=== PATIENT | male | born 1965 | race Caucasian/White ===

== ENCOUNTER 2018-04-09 11:22 | Inpatient (IN) ==
[2018-04-09] MEDS ORDERED: ASPIRIN PR ONE (12:12)
[2018-04-09] MEDS ORDERED: ASPIRIN PO ONE (12:12)
[2018-04-09 12:25] LABS: BASO# 0.04 X1000 (0.0-0.2); BASO% 0.6 % (0.0-0.8); EOS# 0.07 X1000 (0.0-0.7); EOS% 1.1 % (0.0-10.0); HEMATOCRIT 36.1 % (42.0-52.0); HEMOGLOBIN 11.5 g/dL (14.0-18.0); IMM GRAN# 0.03 X1000 (0.0-0.04); IMM GRAN% 0.5 % (0.0-0.5); LYMPH# 0.84 X1000 (1.2-3.4); LYMPH% 13.4 % (20.5-51.1); MCH 27.1 PG (27-31); MCHC 31.9 g/dL (33-37); MCV 85.1 FL (81-99); MONO# 0.69 X1000 (0.11-0.59); NEUT# 4.58 X1000 (1.4-6.5); NEUT% 73.4 % (42.2-75.2); PLT 220 X1000 (130-400); RBC 4.24 XMIL (4.7-6.1); RDW 20.4 % (11.5-14.5); WBC 6.25 X1000 (4.8-10.8)
[2018-04-09 12:30] LABS: INR 1.18; PROTIME 15.6 Seconds (11.0-16.0); PTT 30.1 Seconds (22.3-41.8)
[2018-04-09 12:39] LABS: AGAP 13; ALBUMIN 3.9 g/dL (3.5-5.0); ALKALINE PHOSPHATASE 97 U/L (32-122); BUN 13 mg/dL (8-22); CHLORIDE 92 mmol/L (98-107); CK PROFILE 76 U/L (24-204); COSMO 267; CREATININE 1.1 mg/dL (0.7-1.2); ESTIMATED GFR > 60; GLUCOSE 81 mg/dL (70-104); GOT 29 U/L (10-34); GPT 19 U/L (10-44); POTASSIUM 3.7 mmol/L (3.5-5.1); SODIUM 134 mmol/L (136-145); TCO2 29 mmol/L (25-35); TOTAL PROTEIN 7.3 g/dL (6.3-8.3)
[2018-04-09] MEDS ORDERED: DUONEB (A & A) INH ONE (12:42)
[2018-04-09] MEDS ORDERED: LASIX IV ONE (12:42)
[2018-04-09] MEDS ORDERED: SOLU-MEDROL IV ONE (12:42)
--- NOTE | 2018-04-09 12:42 | Diag Imaging Result Doc PS360 ---
EXAM: CHEST-2 VIEWS HISTORY: SOB TECHNIQUE: Chest two views COMPARISON: 02/07/2018 FINDINGS: The lungs are well expanded. There are increased interstitial markings throughout both lungs. The heart remains mildly prominent. The tiny pleural effusions. No consolidation. There has been surgery to the lower neck. IMPRESSION: Infiltrates versus fibrosis Electronically signed by Rad Borja 04/09/2018 12:40 PM
--- NOTE | 2018-04-09 14:44 | PROVIDER DOCUMENTATION ---
This chart was entered by Niurka Luevano Scribe, acting as scribe for Sarah Wheeler MD. HPI-Respiratory General - General Chief Complaint: Shortness of Breath Stated Complaint: SOB Time Seen by Provider: 04/09/18 12:02 Source: patient Allergies/Adverse Reactions: Patient Allergies Allergy/AdvReac Type Severity Reaction Status Date / Time codeine Allergy ANAPHYLAXIS Verified 01/31/18 02:54 hydrocodone AdvReac NAUSEA/VOMI Verified 01/31/18 02:54 TING Home Medications: Home Medication List Medication Instructions Recorded Confirmed Last Taken Type Lisinopril 2.5 mg PO DAILY 01/01/18 02/05/18 1 Day Ago History ~01/13/18 Nitroglycerin Sl [Nitroglycerin] 0.4 mg PO PRN PRN 01/01/18 02/05/18 2 Days Ago History ~01/12/18 Spironolactone 12.5 mg PO DAILY 01/01/18 02/05/18 1 Day Ago History ~01/13/18 Aspirin 81 mg PO DAILY 01/14/18 02/05/18 1 Day Ago History ~01/13/18 Amiodarone [Cordarone] 200 mg PO QAM #30 tablet 01/29/18 02/05/18 Unknown Rx Azithromycin [Zithromax Z-Davi] 250 mg PO DIRECTED #1 pkg 01/29/18 02/05/18 Unknown Rx Carvedilol 3.125 mg PO BID #60 tablet 01/29/18 02/05/18 Unknown Rx Clopidogrel [Plavix] 75 mg PO DAILY #30 tablet 01/29/18 02/05/18 Unknown Rx Furosemide [Lasix] 80 mg PO DAILY #60 tablet 01/29/18 02/05/18 Unknown Rx - History of Present Illness-Resp Nature of Presenting Problem: 53 yowm presents to the ed with c/o sob for 2 days. pt sts it is worse when lying flat or with exertion. pt has hx of copd and chf Quality of Pain: reports: fullness Severity in ED: reports: moderate Onset/Duration: reports: 2 days ago Timing: reports: still present, constant Context: reports: recent URI Cough Quality/Degree: reports: dry cough Episode Frequency: frequent episodes Current Respiratory Medication Therapy: Initiated see nurses note Modifying Factors: improves with: oxygen, rest, sitting upright. worse with: exertion, lying down Associated Symptoms: reports: cough, hurts to breathe, shortness of breath. denies: chest pain/soreness, dizziness, nasal congestion Similar Symptoms Previously?: Yes Recently seen or treated by another doctor?: No Review of Systems - Adult - REVIEW OF SYSTEMS - ADULT Constitutional: reports: no symptoms reported Eyes: denies: blurred vision, double vision Ears, Nose, Mouth & Throat: reports: no symptoms reported Cardiovascular: denies: chest pain, palpitations, syncope Respiratory: reports: see HPI, cough, dyspnea on exertion, shortness of breath. denies: wheezing Gastrointestinal: denies: abdominal pain, diarrhea, nausea, vomiting Genitourinary: reports: no symptoms reported Musculoskeletal: reports: no symptoms reported Integumentary: reports: no symptoms reported Neurological: denies: dizziness/vertigo, headache/migraines Psychiatric: reports: no symptoms reported Endocrine: reports: no symptoms reported Hematologic/Lymphatic: reports: no symptoms reported Allergic/Immunologic: reports: no symptoms reported All Other Systems: Reviewed and Negative Past History - Adult - PAST MEDICAL HISTORY-ADULT Review of Records: reports: Old Records Reviewed, Nursing Assessment Review, Medications Reviewed, Social history reviewed & non-contributory. Major Childhood Illnesses: reports: denies history Cardiovascular: reports: A-Fib, CHF Respiratory: reports: asthma, COPD, pneumonia Gastrointestinal: reports: denies history Genitourinary: reports: denies history Musculoskeletal: reports: denies history Neurological: reports: denies history Psychiatric: reports: anxiety Endocrine/Immune: reports: denies history Other Conditions: reports: denies history - PRIOR SURGERIES/PROCEDURES Surgical/Procedure History: reports: hernia repair, back/neck - IMMUNIZATION STATUS Childhood Immunizations: See Nurse Assessment Flu Vaccine: See Nurse Assessment - FAMILY HISTORY Family History: reviewed, not pertinent - SOCIAL HISTORY Smoking: quit greater than 1 year Substance Use: denies Living Situation: family Physical Exam-General - PHYSICAL EXAM-ADULT Initial Vital Signs Reviewed: Yes - CONSTITUTIONAL General Appearance: alert, mild distress, anxious - EYES Eyes: PERRL/EOMI, pink conjunctivae - HEAD, EARS, NOSE, MOUTH & THROAT HENMT: moist mucous membranes, dental decay - NECK Neck: non-tender, full range of motion, supple, normal inspection - RESPIRATORY Respiratory: respiratory distress, crackles, increased rate (28). negative: rales, rhonchi, wheezing - CARDIOVASCULAR Cardiovascular: normal peripheral pulses, tachycardia (104) - GASTROINTESTINAL (ABDOMEN) Abdominal Exam: normal bowel sounds, non tender, soft - LYMPHATIC Lymphatic: no adenopathy - MUSCULOSKELETAL Back Exam: normal inspection, no CVA tenderness, no vertebral tenderness Extremity: normal range of motion, non-tender, normal inspection, no pedal edema , no calf tenderness, normal capillary refill - SKIN Integumentary: normal color, normal turgor, warm/dry - NEUROLOGIC Neurologic: grossly normal - PSYCHIATRIC Psych/Mental Status: normal mood/affect, normal thought content, normal thought process, oriented x 3, anxious Progress - PLAN OF CARE/RESULTS Progress/Plan/Lab Results: Vital Signs - 8 hr 04/09/18 11:34 04/09/18 12:52 04/09/18 13:05 Temperature 97.6 F Pulse Rate 104 H 102 H 103 H Respiratory Rate 28 H 16 26 H Blood Pressure 94/56 112/82 O2 Sat by Pulse Oximetry 100 98 100 Laboratory Results - last 24 hr 04/09/18 04/09/18 04/09/18 11:47 11:47 11:47 WBC 6.25 RBC 4.24 L Hgb 11.5 L Hct 36.1 L MCV 85.1 MCH 27.1 MCHC 31.9 L RDW Std Deviation 20.4 H Plt Count 220 MPV 10.0 Immature Gran % (Auto) 0.5 Neut % (Auto) 73.4 Lymph % (Auto) 13.4 L [place] % (Auto) 11.0 H Eos % (Auto) 1.1 Baso % (Auto) 0.6 Immature Gran # (Auto) 0.03 Neut # (Auto) 4.58 Lymph # (Auto) 0.84 L [place] # (Auto) 0.69 H Eos # (Auto) 0.07 Baso # (Auto) 0.04 PT INR PTT (Actin FS) Sodium 134 L Potassium 3.7 Chloride 92 L Carbon Dioxide 29 Anion Gap 13 BUN 13 Creatinine 1.1 Estimated GFR/1.73 m2 > 60 BUN/Creatinine Ratio 12 Glucose 81 Calculated Osmolality 267 Calcium 9.0 Total Bilirubin 0.90 AST 29 ALT 19 Alkaline Phosphatase 97 Creatine Kinase 76 Troponin T Cwn-J-Wmcquccvbst Pept 6705 H Total Protein 7.3 Albumin 3.9 Globulin 3.0 Albumin/Globulin Ratio 1.0 Plasma Lactate 04/09/18 04/09/18 04/09/18 11:47 11:47 11:47 WBC RBC Hgb Hct MCV MCH MCHC RDW Std Deviation Plt Count MPV Immature Gran % (Auto) Neut % (Auto) Lymph % (Auto) [place] % (Auto) Eos % (Auto) Baso % (Auto) Immature Gran # (Auto) Neut # (Auto) Lymph # (Auto) [place] # (Auto) Eos # (Auto) Baso # (Auto) PT 15.6 INR 1.18 PTT (Actin FS) 30.1 Sodium Potassium Chloride Carbon Dioxide Anion Gap BUN Creatinine Estimated GFR/1.73 m2 BUN/Creatinine Ratio Glucose Calculated Osmolality Calcium Total Bilirubin AST ALT Alkaline Phosphatase Creatine Kinase Troponin T < 0.010 Raz-H-Unnhsdytdgh Pept Total Protein Albumin Globulin Albumin/Globulin Ratio Plasma Lactate 2.2 Orders Category Date Time Status Cardiac Monitoring DIRECTED Care 04/09/18 12:13 Active Oxygen Therapy- ED Nursing DIRECTED Care 04/09/18 12:13 Active Saline Loc NOW Care 04/09/18 12:13 Active CHEST-2 VIEWS [RAD] Stat Exams 04/09/18 12:13 Completed BLOOD CULTURE [BLDCUL] Stat Lab 04/09/18 13:14 Ordered CBC WITH ELECTRONIC DIFF [HEME] Stat Lab 04/09/18 11:47 Completed CK PROFILE [SP CHEM] Stat Lab 04/09/18 11:47 Completed COMPREHENSIVE METABOLIC PANEL [CHEM] Stat Lab 04/09/18 11:47 Completed LACTATE, PLASMA [CHEM] Stat Lab 04/09/18 11:47 Completed PRO B-NATRIURETIC PEPTIDE Stat Lab 04/09/18 11:47 Completed PROTIME WITH INR [COAG] Stat Lab 04/09/18 11:47 Completed PTT [COAG] Stat Lab 04/09/18 11:47 Completed TROPONIN T Stat Lab 04/09/18 11:47 Completed Albuterol 2.5MG/Ipratrop 0.5MG [Duoneb (A & A)] Med 04/09/18 12:42 Discontinued 6 ml INH NOW ONE Aspirin Med 04/09/18 12:12 Discontinued 300 mg [place] NOW ONE Aspirin Med 04/09/18 12:12 Discontinued 325 mg PO NOW ONE Furosemide [Lasix] Med 04/09/18 12:42 Discontinued 40 mg IV NOW ONE Methylprednisolone Sod Succ [Solu-Medrol] Med 04/09/18 12:42 Discontinued 125 mg IV NOW ONE Aerosol Treatments Routine Oth 04/09/18 12:43 Completed Aerosol Treatments Stat Oth 04/09/18 12:43 Completed CP/SOB/Palp >45 yrs of Age Stat Oth 04/09/18 12:12 Ordered EKG [EKG] Stat Ther 04/09/18 12:13 Ordered Result Diagrams: 04/09/18 11:47 04/09/18 11:47 - REASSESSMENT Reassessment #1 Time Reassessed: 14:24 Status: unchanged Reassessment Comment: pt is sitting in bed - EKG 1 Time of EKG reading by physician:: 12:07 EKG Read and Signed by:: Sarah Wheeler EKG Interpretation (*Must complete 3 of following elements*): Abnormal Rate: 103 Rhythm: aflutter w/ variable AV block w/ premature ventricular or acc [place]: normal QRS: RBB (incomplete) [place] Interval: normal Comments: nonspecific ST and T wave abnoermality - XRAY 1 XRAY: Bilateral XRAY Study: Chest Impression: See EMR Report (EXAM: CHEST-2 VIEWS HISTORY: SOB TECHNIQUE: Chest two views COMPARISON: 02/07/2018 FINDINGS: The lungs are well expanded. There are increased interstitial markings throughout both lungs. The heart remains mildly prominent. The tiny pleural effusions. No consolidation. There has been surgery to the lower neck. IMPRESSION: Infiltrates versus fibrosis Electronically signed by Rad Borja 04/09/2018 12:40 PM 1240 Interpreting Physician: Rad Borja MD Dictated Date/Time: 04/09/18 1238 cc: Sarah Wheeler MD; None,PCP) - CONSULTS/PCP/HOSPITALIST Notification #1 *Consult/PCP/Hospitalist*: hospitalist dr miles Time Discussed: 14:39 Reason/Comments: sob Consult Disposition: Admit Departure - Departure Date of Disposition Decision: 04/09/18 Time of Disposition Decision: 14:43 DIAGNOSIS: CHF (congestive heart failure) Qualifiers: Heart failure type: unspecified Heart failure chronicity: acute on chronic Qualified Code(s): I50.9 - Heart failure, unspecified Disposition: ADMITTED INPATIENT 09 Certified Medical Emergency: Emergent Condition: Stable Referrals and Follow-Ups: None,PCP [Primary Care Provider] - - Critical Care Note This patient required my direct & personal management of CC.: Yes Total Time (mins): 38 Critical Care Statement: This patient required my direct personal management to treat or rule out processes, the absence of which, could potentiallly result in sudden, clinically significant life or limb threatening deterioration. Attestation - Physician/ PREET Attestation Patient care was provided by Advanced Practice Provider:: No The physician spent face to face time with patient:: Yes Advanced Practice Provider documentation review:: Supervising physician onsite and consulted in the evaluation and care of this patient. The physician did have a face to face encounter with the patient. This chart was documented by the indicated scribe, (Niurka Luevano Scribe) and accurately reflects the services I performed and decisions made by me, Sarah Wheeler MD, as attested by the provider's signature.
--- NOTE | 2018-04-09 15:03 | EKG Report ---
Test Performed on : 04/09/2018 12:07:59 PM Test Reason : SOB Blood Pressure : / mmHG Vent. Rate : 103 BPM Atrial Rate : 206 BPM P-R Int : 000 ms QRS Dur : 092 ms QT Int : 202 ms P-R-T Axes : -81 063 110 degrees QTc Int : 264 ms Atrial flutter. with variable AV block. with premature ventricular or aberrantly conducted complexes. Incomplete right bundle branch block Nonspecific ST and T wave abnormality Abnormal ECG When compared with ECG of 07-FEB-2018 21:01, Criteria for Septal infarct are no longer present ST now depressed in Inferior leads ST now depressed in Anterior leads Nonspecific T wave abnormality now evident in Anterior leads QT has shortened Unconfirmed Result
[2018-04-09 15:42] LABS: URINE SOURCE VOIDED
[2018-04-09 15:56] LABS: BILIRUBIN URINE NEGATIVE (NEGATIVE); BLOOD URINE NEGATIVE (NEGATIVE); CLARITY CLEAR (CLEAR); COLOR YELLOW; GLUCOSE URINE NEGATIVE (NEGATIVE); KETONE URINE NEGATIVE (NEGATIVE); LEUKOCYTES URINE NEGATIVE (NEGATIVE); NITRITE URINE NEGATIVE (NEGATIVE); PROTEIN URINE NEGATIVE (NEGATIVE); SP GRAVITY URINE 1.005; UROBILINOGEN URINE NORMAL
[2018-04-09 16:04] LABS: UR AMPHETAMINES QUAL NONE DETECTED (NONE DETECT); UR BARBITUATES QUAL NONE DETECTED (NONE DETECT); UR BENZODIAZEPIN QUAL NONE DETECTED (NONE DETECT); UR CANNABINOIDS QUAL PRESUMPTIVE POSITIVE (NONE DETECT); UR COCAINE QUAL NONE DETECTED (NONE DETECT); UR METHADONE QUAL NONE DETECTED (NONE DETECT); UR METHAMPHETAMINE QUAL NONE DETECTED (NONE DETECT); UR OPIATES QUAL NONE DETECTED (NONE DETECT); UR OXYCODONE QUAL NONE DETECTED (NONE DETECT); UR PCP QUAL NONE DETECTED (NONE DETECT); UR PROPOXYPHENE QUAL NONE DETECTED (NONE DETECT); UR TCA QUAL NONE DETECTED (NONE DETECT)
[2018-04-09] MEDS ORDERED: ZOFRAN IV PRN (18:36)
[2018-04-09] MEDS ORDERED: TYLENOL PO PRN (18:36)
[2018-04-09] MEDS ORDERED: DUONEB (A & A) INH PRN (18:39)
--- NOTE | 2018-04-09 18:57 | HISTORY AND PHYSICAL ---
CHIEF COMPLAINT: Shortness of breath, lower extremity edema. HISTORY OF PRESENT ILLNESS: This is a 53-year-old gentleman with a history of systolic heart failure, chronic atrial flutter, with EF of 20-25%. He presents complaining of shortness of breath and lower extremity edema that has been present for a week, but over the last 2 days it has increased to the point that he slept in a chair the last two nights. He reports a nonproductive cough. He denies any fever or chills. PAST MEDICAL HISTORY: 1. Systolic heart failure with an EF of 20-25% in December 2017. 2. Coronary artery disease. 3. Chronic atrial fibrillation, atrial flutter. 4. COPD. 5. History of upper extremity DVT. 6. Amphetamine use. PAST SURGICAL HISTORY: Neck surgery. SOCIAL HISTORY: He denies any alcohol use, recent drug abuse. He does smoke a pack a day. ALLERGIES: Codeine and hydrocodone, which cause anaphylaxis. HOME MEDICATIONS: A list will be obtained by the nursing staff and once verified, will review and restart as appropriate. REVIEW OF SYSTEMS: Discussed with the patient with pertinent positives stated in the HPI. He denied any syncope or dizziness, any chest pain, any palpitations, a productive cough, any fevers or chills, any nausea, vomiting, diarrhea, constipation, black or bloody vomitus or stools, any hematuria, dysuria, frequency, urgency. PHYSICAL EXAMINATION: GENERAL: This is a 53-year-old gentleman who is sitting up on the bedside in no distress. VITAL SIGNS: Blood pressure is 112/82 with a heart rate of 101, respirations are 19 to 22, temperature is 97.6, with O2 sats that are 96-100% on room air. EYES: Pupils are equal, round, react to light. EOMs are intact. Sclerae are anicteric. HEENT: Head is normocephalic, atraumatic. Mucous membranes are moist. NECK: Supple, with trachea midline. CARDIOVASCULAR: Regular rate and rhythm. S1 and S2 appreciated. He does have pitting edema that extends from up to his knees with peripheral pulses palpable x 4 extremities. PULMONARY: He has wheezes scattered throughout. Chest rises and falls symmetrically with respiration. GASTROINTESTINAL: Abdomen is soft, nontender, nondistended. With bowel sounds in all 4 quadrants. NEUROLOGIC: He is alert and oriented x 3. SKIN: Warm and dry. LABORATORY: WBC is 6.2, with hemoglobin 11.5, hematocrit 36.1 and platelets of 220,000. Sodium 134, potassium 3.7, BUN 13, creatinine 1.1, with glucose of 81. ProBNP is 6705. Urinalysis is essentially negative. Urine drug screen reveals presumptive positive for cannabinoids. Chest x-ray reveals lungs well expanded with increased interstitial markings throughout both lungs. Heart remains mildly prominent there. There are tiny pleural effusions. No consolidation. ASSESSMENT AND PLAN: 1. Acute systolic heart failure in a patient with an EF of 20-25%. 2. Chronic obstructive pulmonary disease, acute on chronic exacerbation. 3. Atrial fibrillation/atrial flutter 4. panic attack 5. hyponatremia 6. History of upper extremity DVT. 7. History of coronary artery disease. PLAN: The patient will be admitted to the Medical/Surgical floor and placed on telemetry. We will give supplemental oxygen as needed. Will give DuoNebs q.4 hours and q.2 hours p.r.n., with steroids to taper. Diuresis with IV Lasix b.i.d. Will identify his home medications and continue these as appropriate. Repeat a CBC, CMP as well as a magnesium in the morning. For DVT prophylaxis will use Lovenox and GI prophylaxis will use Prilosec. Further treatments pending hospital course. Dictated by KRISH Borges for Neil Garber MD This chart was documented by, KRISH Borges and accurately reflects the services performed, treatment plan and medical decisions as attested by the providers signature Neil Garber MD. cc: KRISH Borges MD [facility]
[2018-04-09] MEDS: LOVENOX SUBQ SCH (18:58)
[2018-04-09] MEDS: DUONEB (A & A) INH SCH (20:15)
[2018-04-09] MEDS: SOLU-MEDROL IV SCH (21:56)
[2018-04-09] MEDS: LASIX IV SCH (21:56)
--- NOTE | 2018-04-09 23:02 | HISTORY AND PHYSICAL ---
ADDENDUM Patient seen and examined by myself. Full note dictated and discussed with nurse practitioner. Patient notes that he was in [facility] approximately 2 months ago, stayed for approximately a week, and had done well until the past several days. Over the past several days, notes he has been having some chest wall pain, hurts when he breathes. He has a history of atrial fibrillation, CHF, and COPD. Notes he has had increased swelling in his lower extremities. Denies missing his medications. We will admit in the hospital, place him on his home medications, increase his Lasix to IV and follow. cc: Neil Garber MD
[2018-04-10] MEDS: DUONEB (A & A) INH SCH ×6 (00:04→20:31)
[2018-04-10] MEDS: SOLU-MEDROL IV SCH ×3 (06:22→20:58)
[2018-04-10] MEDS: PRILOSEC PO SCH (06:22)
[2018-04-10 07:38] LABS: BASO# 0.01 X1000 (0.0-0.2); BASO% 0.2 % (0.0-0.8); HEMATOCRIT 32.4 % (42.0-52.0); HEMOGLOBIN 10.2 g/dL (14.0-18.0); IMM GRAN# 0.01 X1000 (0.0-0.04); IMM GRAN% 0.2 % (0.0-0.5); LYMPH# 0.46 X1000 (1.2-3.4); MCH 26.6 PG (27-31); MCHC 31.5 g/dL (33-37); MCV 84.6 FL (81-99); MONO# 0.13 X1000 (0.11-0.59); MONO% 2.3 % (1.7-9.3); NEUT# 5.16 X1000 (1.4-6.5); NEUT% 89.3 % (42.2-75.2); PLT 199 X1000 (130-400); RBC 3.83 XMIL (4.7-6.1); RDW 20.3 % (11.5-14.5); WBC 5.77 X1000 (4.8-10.8)
[2018-04-10 07:39] LABS: AGAP 13; ALBUMIN 3.7 g/dL (3.5-5.0); ALKALINE PHOSPHATASE 88 U/L (32-122); BUN 17 mg/dL (8-22); CALCIUM 8.8 mg/dL (8.8-10.2); CHLORIDE 93 mmol/L (98-107); COSMO 272; CREATININE 1.1 mg/dL (0.7-1.2); ESTIMATED GFR > 60; GLUCOSE 175 mg/dL (70-104); GOT 24 U/L (10-34); GPT 17 U/L (10-44); POTASSIUM 3.4 mmol/L (3.5-5.1); SODIUM 133 mmol/L (136-145); TCO2 27 mmol/L (25-35)
[2018-04-10] MEDS ORDERED: PROTONIX PO SCH (09:00)
[2018-04-10] MEDS: LASIX IV SCH (10:00)
[2018-04-10] MEDS: ASPIRIN PO SCH (10:00)
[2018-04-10] MEDS: ALDACTONE PO SCH (10:00)
[2018-04-10] MEDS: CORDARONE PO SCH (10:01)
[2018-04-10] MEDS: ELIQUIS PO SCH (10:01)
[2018-04-10 10:16] LABS: LYMPHS 8 % (21-51); MONO 3 % (1-9); SEGS 89 % (42-75)
[2018-04-10] MEDS ORDERED: LASIX IV SCH (18:32)
[2018-04-10] MEDS: LOVENOX SUBQ SCH (18:54)
--- NOTE | 2018-04-10 19:13 | Diag Imaging Result Doc PS360 ---
EXAM: CHEST-2 VIEWS - 04/10/2018 HISTORY: hypoxia TECHNIQUE: Chest two views COMPARISON: 04/09/2018 FINDINGS: There is stable mild cardiomegaly. There are stable generalized interstitial marking prominence. There are stable small right pleural effusion. The prior small left pleural effusion is less conspicuous on this exam. There is no dense consolidation or pneumothorax identified. IMPRESSION: Stable mild cardiomegaly. Stable generalized interstitial marking prominence. Stable small right pleural effusion. Apparent decrease in small left pleural effusion. Electronically signed by Isra Farmer 04/10/2018 7:11 PM
[2018-04-10] MEDS: ATIVAN PO PRN (19:41)
--- NOTE | 2018-04-10 22:54 | PROGRESS NOTE ---
DATE: 04/10/2018 SUBJECTIVE: This morning the patient is sitting up on the side of the bed. He states that he is feeling a lot better. He notes that his breathing is improving. Denies any chest pain or palpitations. Denies any current fevers. OBJECTIVE: Temperature 98 degrees, pulse 101, respiratory rate 18, BP 98/54. General: The patient is awake, alert and oriented, currently in no respiratory distress. HEENT: Normocephalic. Neck supple. Cardiovascular: Regular rate. Chest: Relatively clear, although decreased breath sounds bilaterally. No crackles. No wheezing currently. Abdomen soft, nondistended. Extremities: Moves all extremities. This evening the patient apparently became quite anxious and nervous. He stated that he was "drowning in fluid." Respiratory checked on him. His O2 saturations were 98% on room air. They did not note any crackles, any wheezing. The patient was able to talk in complete sentences. It appeared as though he was having a panic attack. The patient was demanding that he get transferred to [facility]. We discussed with the patient that patients are on diversion and unless he was having an ST-elevated [place], they were not accepting any patients. ASSESSMENT: 1. Acute panic attack. 2. Lscya-kr-cogtrei congestive heart failure, systolic. The patient has a known ejection fraction of 20% to 25%. 3. Chronic obstructive pulmonary disease, with mild exacerbation. 4. Atrial fibrillation, currently stable. 5. Hypokalemia. 6. Hyponatremia. 7. Known coronary artery disease. PLAN: We will continue the patient in the hospital. We will replace potassium, replace sodium. We will continue his Lasix. Use Ativan as needed, and will follow. cc: Neil Garber MD
[2018-04-11] MEDS: SOLU-MEDROL IV SCH ×3 (03:55→20:28)
[2018-04-11] MEDS: ATIVAN PO PRN ×3 (03:55→20:30)
[2018-04-11] MEDS: DUONEB (A & A) INH SCH ×6 (04:07→23:43)
[2018-04-11 07:40] LABS: BASO# 0.01 X1000 (0.0-0.2); BASO% 0.1 % (0.0-0.8); HEMATOCRIT 36.9 % (42.0-52.0); HEMOGLOBIN 11.8 g/dL (14.0-18.0); IMM GRAN# 0.05 X1000 (0.0-0.04); IMM GRAN% 0.3 % (0.0-0.5); LYMPH# 0.57 X1000 (1.2-3.4); LYMPH% 3.6 % (20.5-51.1); MCH 27.1 PG (27-31); MCV 84.6 FL (81-99); MONO# 0.42 X1000 (0.11-0.59); MONO% 2.6 % (1.7-9.3); MPV 10.2 FL (7.4-10.4); NEUT# 14.99 X1000 (1.4-6.5); NEUT% 93.4 % (42.2-75.2); PLT 263 X1000 (130-400); RBC 4.36 XMIL (4.7-6.1); RDW 20.5 % (11.5-14.5); WBC 16.04 X1000 (4.8-10.8)
[2018-04-11 08:07] LABS: AGAP 20; ALBUMIN 4.1 g/dL (3.5-5.0); ALKALINE PHOSPHATASE 98 U/L (32-122); BUN 29 mg/dL (8-22); CALCIUM 9.2 mg/dL (8.8-10.2); CHLORIDE 93 mmol/L (98-107); COSMO 281; CREATININE 1.2 mg/dL (0.7-1.2); ESTIMATED GFR > 60; GLUCOSE 164 mg/dL (70-104); GOT 28 U/L (10-34); GPT 22 U/L (10-44); POTASSIUM 4.1 mmol/L (3.5-5.1); SODIUM 136 mmol/L (136-145); TCO2 23 mmol/L (25-35); TOTAL PROTEIN 7.1 g/dL (6.3-8.3)
[2018-04-11] MEDS: PRILOSEC PO SCH (08:27)
[2018-04-11 08:43] LABS: LYMPHS 4 % (21-51); MONO 1 % (1-9); SEGS 95 % (42-75)
[2018-04-11] MEDS: ALDACTONE PO SCH (09:25)
[2018-04-11] MEDS: LASIX IV SCH ×2 (09:25→23:49)
[2018-04-11] MEDS: ASPIRIN PO SCH (09:26)
[2018-04-11] MEDS: CORDARONE PO SCH (09:26)
[2018-04-11] MEDS: ELIQUIS PO SCH ×2 (09:26→20:31)
[2018-04-11] MEDS ORDERED: ROBITUSSIN-DM PO PRN (10:01)
--- NOTE | 2018-04-11 16:42 | CARDIOLOGY CONSULTATION ---
DATE: 04/11/2018 INDICATION FOR CONSULTATION AND CHIEF COMPLAINT: Shortness of breath in a patient with a history of heart failure. HISTORY OF PRESENT ILLNESS: Mr. Figueredo is a 53-year-old, white male with a history of ischemic cardiomyopathy. Previous EF's were in the 20-25% range. He normally [facility] with [facility] in [place]. He has had multiple recent hospitalizations both here in [place] as well as in [place]. He reports compliance with his medication regimen but on discussion there may be some issues with sodium as well as fluid restriction compliance. He reports compliance with his medications. In addition, he denies any recent illicit drugs. He is having increasing shortness of breath as well as lower extremity edema. He was found to have a chest x-ray suggesting some possible pulmonary edema as well as a elevated proBNP. PAST MEDICAL HISTORY: 1. Significant for systolic heart failure. Previous ejection fractions in the 20-25%percent range. His previous cardiac catheterization was in August 2017. Left main had no significant disease. LAD had a smooth tapering 90% lesion. Circumflex had a 40% proximal lesion followed by a 50% in the obtuse marginal. Right coronary was large with a proximal 30% disease and 90% stenosis in the mid vessel extending into the ostium of the posterior lateral PCI to the LAD was performed. 2. Atrial flutter with cardioversion in August 2017. Previously had been on Xarelto. 3. Hypertension. 4. Hyperlipidemia. 5. Chronic obstructive pulmonary disease. SOCIAL HISTORY: Previous polysubstance abuse. The patient reports that he is off all such substances even though his [facility]DS home most recently says positive for marijuana. He did have a positive screen for amphetamine towards the end of last year but none this visit. Again he reports being off of these. FAMILY HISTORY: Significant for hypertension. REVIEW OF SYSTEMS: A 10 system review of systems is negative except for those mentioned in HPI. PHYSICAL EXAMINATION: Vital Signs: He is afebrile. His heart rates appear to be in the low 100s. His blood pressure is 111/74. I's and O's are difficult to track. He has very poor intake and output recorded on the . He seems to have excessive fluid intake recorded today. I have instructed him to avoid this and also placed him on a 1500 mL fluid restriction in this dietary orders. General: He is an ill-appearing white male, somewhat disheveled. HEENT: Oropharynx is moist. Poor dentition. Eye examination is pink conjunctivae, white sclerae. Neck: Examination shows no obvious thyromegaly or thyroid tenderness. Cardiovascular: He sounds to be in a mildly tachycardic but regular rhythm currently, he has no obvious murmurs. He has no S3. He has trace to 1+ bilateral lower extremity edema. Respiratory: His chest exam sounds relatively clear. He has no increased work of breathing. Abdomen: Soft, nontender, nondistended. He has no obvious organomegaly. Skin Exam: Warm and dry throughout without any rashes. PERTINENT DATA: He has stable mild cardiomegaly, with interstitial marking prominence noted on his chest x-ray. Small right pleural effusion. Decrease in the small left pleural effusion compared to previous. His EKG seems to show probable atrial flutter with a rate of 103 beats per minute. His laboratory data demonstrates a white count of 16, hematocrit 37, platelet count of 263,000, he does have a left shift. His sodium is 136, potassium 4.1, BUN 29, creatinine is 1.2. His proBNP this hospitalization is 23,000. ASSESSMENT: Mr. Figueredo is a 53-year-old gentleman who presented with heart failure. PLAN: I will reinstitute some of his home medications including Coreg. I have made a slight dose titration on his lisinopril up to 5 mg. He was on 2.5 mg previously. We will try to continue to diurese the patient. He is on 40 IV q.12 of Lasix. He continues on spironolactone. I have instructed the patient on dosing adjustments in his fluid intake. For some reason he is on apixaban at a dose of 2.5 daily. Given his history of atrial flutter, his age and his weight, I will increase his dose to 5 mg b.i.d., which would be the appropriate dosing. I will discontinue his aspirin and place him on Plavix 75 mg daily. Notably, he did have a PCI in August 2017. We will continue on those medications for the time being. I have discontinued his subcu Lovenox. cc: Brian Reilly MD
[2018-04-11] MEDS: COREG PO SCH (20:30)
--- NOTE | 2018-04-12 00:30 | PROGRESS NOTE ---
DATE: 04/11/2018 SUBJECTIVE: Patient currently is calm although he has episodes where he becomes angry, agitated, anxious, nervous. In fact, to several of staff members last night he made sure that they were keenly aware that both hospitals in [place] are "absolute shit." Currently, he is calm and is in no distress and is sitting on the side of bed. PHYSICAL EXAMINATION: Vital Signs: Temperature 97 degrees, pulse 105 respiratory 22, BP 122/86. General: Patient currently as noted is calm, awake, alert, oriented. He is in mild respiratory distress. HEENT: Normocephalic. Neck: Supple. Cardiovascular: Regular rate. No current murmurs. Chest: Positive mild wheezing. Positive mild crackles. Abdomen: Soft, nondistended, nontender. Extremities: Moves all extremities. Neurologic: No changes. ASSESSMENT: 1. Acute systolic congestive heart failure with an ejection fraction of 20 to 25 percent chronically. 2. Chronic obstructive pulmonary disease with exacerbation. 3. Atrial fibrillation. 4. Hypokalemia. 5. Hyponatremia. 6. Anemia of chronic disease. 7. Chronic anxiety, depression. PLAN: We will continue patient in the hospital. Continue IV Lasix, IV Solu-Medrol, breathing treatments, oxygen. Hopefully, patient will stay in the hospital to allow treatment although he continues to threaten to leave when he gets anxious and nervous. We will continue Ativan and follow. Cardiology has also seen in consultation. cc: Neil Garber MD
[2018-04-12 03:10] VITALS: BP 108/69
[2018-04-12] MEDS: DUONEB (A & A) INH SCH ×2 (03:27→09:02)
[2018-04-12] MEDS: ATIVAN PO PRN (03:27)
[2018-04-12] MEDS: PRILOSEC PO SCH (06:23)
[2018-04-12] MEDS: SOLU-MEDROL IV SCH (06:25)
[2018-04-12 06:55] LABS: BASO# 0.01 X1000 (0.0-0.2); BASO% 0.1 % (0.0-0.8); HEMATOCRIT 33.8 % (42.0-52.0); IMM GRAN# 0.04 X1000 (0.0-0.04); IMM GRAN% 0.4 % (0.0-0.5); LYMPH% 5.7 % (20.5-51.1); MCH 27.1 PG (27-31); MCHC 32.5 g/dL (33-37); MCV 83.3 FL (81-99); MONO# 0.47 X1000 (0.11-0.59); MONO% 4.5 % (1.7-9.3); MPV 10.1 FL (7.4-10.4); NEUT# 9.42 X1000 (1.4-6.5); NEUT% 89.3 % (42.2-75.2); PLT 235 X1000 (130-400); RBC 4.06 XMIL (4.7-6.1); RDW 19.9 % (11.5-14.5); WBC 10.54 X1000 (4.8-10.8)
[2018-04-12 07:04] LABS: ALBUMIN 3.6 g/dL (3.5-5.0); CALCIUM 9.1 mg/dL (8.8-10.2); CREATININE 1.3 mg/dL (0.7-1.2); POTASSIUM 4.4 mmol/L (3.5-5.1); TOTAL PROTEIN 6.8 g/dL (6.3-8.3)
[2018-04-12 07:06] LABS: BANDS 1 % (0-1); LYMPHS 13 % (21-51); MONO 2 % (1-9); SEGS 84 % (42-75)
[2018-04-12] MEDS ORDERED: PRINIVIL PO SCH ×2 (09:00)
[2018-04-12] MEDS ORDERED: SAMSCA PO ONE (09:00)
[2018-04-12] MEDS: ELIQUIS PO SCH ×2 (09:43→10:12)
[2018-04-12] MEDS: PLAVIX PO SCH ×2 (09:43→10:12)
[2018-04-12] MEDS: PREDNISONE PO SCH ×2 (09:44→10:11)
[2018-04-12] MEDS: CORDARONE PO SCH ×2 (09:44→10:12)
[2018-04-12] MEDS: ALDACTONE PO SCH ×2 (09:44→10:13)
[2018-04-12] MEDS: COREG PO SCH ×2 (09:44→10:12)
[2018-04-12] MEDS: PRINIVIL PO SCH ×2 (09:44→10:11)
[2018-04-12] MEDS: LASIX IV SCH (09:44)
--- NOTE | 2018-04-13 19:41 | DISCHARGE SUMMARY ---
ADMISSION DATE: 04/09/2018 DISCHARGE DATE: 04/12/2018 DISCHARGE DIAGNOSIS: 1. Patient left against medical advice. 2. Patient is noncompliant with medical regimen. 3. Anxiety. 4. Acute on chronic systolic congestive heart failure in patient with an ejection fraction of 20 to 25%. 5. Chronic obstructive pulmonary disease with mild exacerbation improved. 6. Atrial fibrillation, flutter stable. 7. Known coronary artery disease. 8. History of upper extremity deep venous thrombosis. 9. Chronic amphetamine use. CONSULTATIONS: Cardiology. PROCEDURES: None. BRIEF HOSPITAL COURSE: Patient is a 53-year-old male who presented to the hospital did have some mild wheezing on initial exam. However currently his lungs are clear, he has fairly good air movement. Patient constantly states that he is unable to breathe as he is speaking in complete sentences. Clinically he is in no current respiratory distress. The patient's history is very difficult to follow as he initially stated that he took two 1 mg Xanax tablets twice daily. Today however he states he has not taken Xanax in over a year or closer to 2 years. The patient's O2 saturation was completely normal on 2 L although patient states that he was not getting any oxygen. Attempted to discuss with him that his panic attacks were likely creating if some if not all his current respiratory issues. Patient refused to have his IV to be restarted, refused to allow us to give him any medications and left AMA. cc: Neil Garber MD
== END 2018-04-12 10:07 | disposition left against medical advice (07) | DRG 292 ==
LOC: P.ED 11:22 → P.MEDSURG 19:41
PROVIDERS: ATTEND Family Medicine
CPT/HCPCS: 71020; 71046; 80053; 80104; 80301; 80305; 82550; 83605; 83880; 84484; 85025; 85610; 85730; 87040; 93005; 94640; 94761; 96374; 96375; 99285; A9270; G0431; G0434; G0477; J1650; J1940; J2920; J2930; J7506; J7512

== ENCOUNTER 2018-04-19 22:25 | Inpatient (IN) ==
[2018-04-19] MEDS ORDERED: LASIX IV ONE (22:33)
[2018-04-19] MEDS ORDERED: DUONEB (A & A) INH ONE (22:33)
[2018-04-19] MEDS ORDERED: SOLU-MEDROL IV ONE (22:33)
[2018-04-19 23:09] LABS: BASO# 0.01 X1000 (0.0-0.2); BASO% 0.1 % (0.0-0.8); EOS# 0.08 X1000 (0.0-0.7); EOS% 0.9 % (0.0-10.0); HEMATOCRIT 36.9 % (42.0-52.0); HEMOGLOBIN 11.8 g/dL (14.0-18.0); IMM GRAN# 0.11 X1000 (0.0-0.04); IMM GRAN% 1.3 % (0.0-0.5); LYMPH% 14.8 % (20.5-51.1); MCH 26.8 PG (27-31); MCV 83.9 FL (81-99); MONO# 0.68 X1000 (0.11-0.59); MONO% 7.8 % (1.7-9.3); MPV 10.3 FL (7.4-10.4); NEUT# 6.58 X1000 (1.4-6.5); NEUT% 75.1 % (42.2-75.2); PLT 247 X1000 (130-400); RDW 20.5 % (11.5-14.5); WBC 8.76 X1000 (4.8-10.8)
[2018-04-19 23:33] LABS: AGAP 14; ALB/GLOB RATIO 1.2; ALKALINE PHOSPHATASE 99 U/L (32-122); BUN 13 mg/dL (8-22); CALCIUM 9.6 mg/dL (8.8-10.2); CHLORIDE 95 mmol/L (98-107); COSMO 276; CREATININE 1.1 mg/dL (0.7-1.2); ESTIMATED GFR > 60; GLUCOSE 108 mg/dL (70-104); GOT 29 U/L (10-34); GPT 28 U/L (10-44); POTASSIUM 3.7 mmol/L (3.5-5.1); SODIUM 138 mmol/L (136-145); TCO2 29 mmol/L (25-35); TOTAL BILIRUBIN 0.94 mg/dL (0.20-1.00); TOTAL PROTEIN 7.3 g/dL (6.3-8.3)
--- NOTE | 2018-04-19 23:50 | PROVIDER DOCUMENTATION ---
This chart was entered by Tianna Quiros Scribe, acting as scribe for Salo Portillo MD. HPI-Respiratory General - General Stated Complaint: chf Time Seen by Provider: 04/19/18 22:33 Source: patient Allergies/Adverse Reactions: Patient Allergies Allergy/AdvReac Type Severity Reaction Status Date / Time codeine Allergy ANAPHYLAXIS Verified 01/31/18 02:54 hydrocodone AdvReac NAUSEA/VOMI Verified 01/31/18 02:54 TING Home Medications: Home Medication List Medication Instructions Recorded Confirmed Last Taken Type Lisinopril 2.5 mg PO DAILY 01/01/18 04/09/18 1 Day Ago History ~01/13/18 Nitroglycerin Sl [Nitroglycerin] 0.4 mg PO PRN PRN 01/01/18 04/09/18 2 Days Ago History ~01/12/18 Spironolactone 12.5 mg PO DAILY 01/01/18 04/09/18 1 Day Ago History ~01/13/18 Aspirin 81 mg PO DAILY 01/14/18 04/09/18 1 Day Ago History ~01/13/18 Amiodarone [Cordarone] 200 mg PO QAM #30 tablet 01/29/18 04/09/18 Unknown Rx Furosemide [Lasix] 80 mg PO DAILY #60 tablet 01/29/18 04/09/18 Unknown Rx Apixaban [Eliquis] 2.5 mg PO DAILY 04/09/18 04/09/18 Unknown History Carvedilol 6.25 mg PO BID 04/09/18 04/09/18 Unknown History Pantoprazole Sodium 40 mg PO DAILY 04/09/18 04/09/18 Unknown History Saline Nasal Montalba [Iva Nasal 2 sprays KARY Q2-3H PRN PRN 04/09/18 04/09/18 Unknown History Montalba] - History of Present Illness-Resp Nature of Presenting Problem: Pt presents to ED from Nursing Home. sts that he has not had his lasix in a week. Pt sts that he is SOB, has CP and swelling. Hx of A-fib, CHF and COPD Severity in ED: reports: moderate Onset/Duration: reports: gradual Timing: reports: still present Cough Quality/Degree: reports: no cough Episode Frequency: chronic episodes Current Respiratory Medication Therapy: Initiated none Modifying Factors: improves with: nothing Associated Symptoms: reports: chest pain/soreness, shortness of breath, short of breath. denies: cough, sore throat, wheezing Similar Symptoms Previously?: Yes Recently seen or treated by another doctor?: No Review of Systems - Adult - REVIEW OF SYSTEMS - ADULT Constitutional: reports: no symptoms reported. denies: chills, fever Eyes: reports: no symptoms reported Ears, Nose, Mouth & Throat: reports: no symptoms reported Cardiovascular: reports: chest pain Respiratory: reports: shortness of breath Gastrointestinal: denies: nausea, vomiting Genitourinary: reports: no symptoms reported Musculoskeletal: reports: no symptoms reported Integumentary: reports: no symptoms reported Neurological: reports: no symptoms reported Psychiatric: reports: no symptoms reported Endocrine: reports: no symptoms reported Hematologic/Lymphatic: reports: no symptoms reported Allergic/Immunologic: reports: no symptoms reported All Other Systems: Reviewed and Negative Past History - Adult - PAST MEDICAL HISTORY-ADULT Review of Records: reports: Old Records Reviewed, Nursing Assessment Review, Medications Reviewed, Social history reviewed & non-contributory. Major Childhood Illnesses: reports: denies history Cardiovascular: reports: A-Fib, CHF Respiratory: reports: asthma, COPD, pneumonia Gastrointestinal: reports: denies history Obstetrical/Gynecological: reports: denies history Genitourinary: reports: denies history Musculoskeletal: reports: denies history Neurological: reports: denies history Psychiatric: reports: anxiety Endocrine/Immune: reports: denies history Other Conditions: reports: denies history - PRIOR SURGERIES/PROCEDURES Surgical/Procedure History: reports: hernia repair, back/neck - IMMUNIZATION STATUS Childhood Immunizations: See Nurse Assessment Flu Vaccine: See Nurse Assessment - FAMILY HISTORY Family History: reviewed, not pertinent - SOCIAL HISTORY Smoking: cigarettes, less than 1 pack/day Provider spent 3-5 mins advising pt. on dangers of tobacco.: Discussed manners to quit use, and f/u contacts for add'l counseling. Substance Use: none/never Alcohol Use Frequency: sober (former use) Living Situation: other (incarceration) Physical Exam-General - PHYSICAL EXAM-ADULT Initial Vital Signs Reviewed: Yes - CONSTITUTIONAL General Appearance: appears well, alert, moderate distress - EYES Eyes: PERRL/EOMI, pink conjunctivae - HEAD, EARS, NOSE, MOUTH & THROAT HENMT: normocephalic/atraumatic, moist mucous membranes, normal ENT inspection, TMs normal, pharynx normal - NECK Neck: non-tender, full range of motion, supple, normal inspection - RESPIRATORY Respiratory: chest non-tender, normal breath sounds, rales - CARDIOVASCULAR Cardiovascular: normal peripheral pulses, regular rate, rhythm - LYMPHATIC Lymphatic: no adenopathy - MUSCULOSKELETAL Extremity: normal range of motion, non-tender, normal gait, normal inspection - SKIN Integumentary: normal color, warm/dry - NEUROLOGIC Neurologic: grossly normal - PSYCHIATRIC Psych/Mental Status: normal mood/affect, normal thought content, normal thought process, oriented x 3 Progress - PLAN OF CARE/RESULTS Progress/Plan/Lab Results: Vital Signs - 8 hr 04/19/18 22:28 04/19/18 23:05 Temperature 98.2 F Pulse Rate 105 H 105 H Respiratory Rate 20 23 Blood Pressure 119/89 O2 Sat by Pulse Oximetry 99 99 04/19/18 22:53 Influenza Screen - Final Nasopharyngeal Laboratory Results - last 24 hr 04/19/18 04/19/18 04/19/18 22:48 22:48 22:48 WBC 8.76 RBC 4.40 L Hgb 11.8 L Hct 36.9 L MCV 83.9 MCH 26.8 L MCHC 32.0 L RDW Std Deviation 20.5 H Plt Count 247 MPV 10.3 Immature Gran % (Auto) 1.3 H Neut % (Auto) 75.1 Lymph % (Auto) 14.8 L Wetzel % (Auto) 7.8 Eos % (Auto) 0.9 Baso % (Auto) 0.1 Immature Gran # (Auto) 0.11 H Neut # (Auto) 6.58 H Lymph # (Auto) 1.30 Wetzel # (Auto) 0.68 H Eos # (Auto) 0.08 Baso # (Auto) 0.01 Sodium 138 Potassium 3.7 Chloride 95 L Carbon Dioxide 29 Anion Gap 14 BUN 13 Creatinine 1.1 Estimated GFR/1.73 m2 > 60 BUN/Creatinine Ratio 12 Glucose 108 H Calculated Osmolality 276 Calcium 9.6 Total Bilirubin 0.94 AST 29 ALT 28 Alkaline Phosphatase 99 Troponin T Paf-R-[id number] Pept Total Protein 7.3 Albumin 4.0 Globulin 3.3 Albumin/Globulin Ratio 1.2 Plasma Lactate 2.6 H 04/19/18 04/19/18 22:48 22:48 WBC RBC Hgb Hct MCV MCH MCHC RDW Std Deviation Plt Count MPV Immature Gran % (Auto) Neut % (Auto) Lymph % (Auto) Wetzel % (Auto) Eos % (Auto) Baso % (Auto) Immature Gran # (Auto) Neut # (Auto) Lymph # (Auto) Wetzel # (Auto) Eos # (Auto) Baso # (Auto) Sodium Potassium Chloride Carbon Dioxide Anion Gap BUN Creatinine Estimated GFR/1.73 m2 BUN/Creatinine Ratio Glucose Calculated Osmolality Calcium Total Bilirubin AST ALT Alkaline Phosphatase Troponin T < 0.010 Ttz-B-Ezzrrjtnnbq Pept 31325 H Total Protein Albumin Globulin Albumin/Globulin Ratio Plasma Lactate Orders Category Date Time Status cxr [CHEST-1 VIEW] [RAD] Stat Exams 04/19/18 22:32 Taken CBC WITH ELECTRONIC DIFF [HEME] Stat Lab 04/19/18 22:48 Completed COMPREHENSIVE METABOLIC PANEL [CHEM] Stat Lab 04/19/18 22:48 Completed INFLUENZA SCREEN A/B Stat Lab 04/19/18 22:53 Completed LACTATE, PLASMA [CHEM] Stat Lab 04/19/18 22:48 Completed PRO B-NATRIURETIC PEPTIDE Stat Lab 04/19/18 22:48 Completed TROPONIN T Stat Lab 04/19/18 22:48 Completed Albuterol 2.5MG/Ipratrop 0.5MG [Duoneb (A & A)] Med 04/19/18 22:33 Discontinued 3 ml INH NOW ONE Furosemide [Lasix] Med 04/19/18 22:33 Discontinued 40 mg IV NOW ONE Methylprednisolone Sod Succ [Solu-Medrol] Med 04/19/18 22:33 Discontinued 125 mg IV NOW ONE Aerosol Treatments Routine Oth 04/19/18 22:33 Completed Aerosol Treatments Stat Oth 04/19/18 22:33 Completed EKG [EKG] Stat Ther 04/19/18 22:23 Ordered Result Diagrams: 04/19/18 22:48 04/19/18 22:48 Departure - Departure Date of Disposition Decision: 04/19/18 Time of Disposition Decision: 23:49 DIAGNOSIS: CHF exacerbation Qualifiers: Heart failure type: unspecified Qualified Code(s): I50.9 - Heart failure, unspecified Disposition: ADMITTED INPATIENT 09 Certified Medical Emergency: Emergent Condition: Stable Referrals and Follow-Ups: None,PCP [Primary Care Provider] - - Critical Care Note This patient required my direct & personal management of CC.: No Attestation - Physician/ PREET Attestation Patient care was provided by Advanced Practice Provider:: No The physician spent face to face time with patient:: Yes Advanced Practice Provider documentation review:: Supervising physician onsite and consulted in the evaluation and care of this patient. The physician did have a face to face encounter with the patient. This chart was documented by the indicated scribe, (Tianna Quiros, Oscar) and accurately reflects the services I performed and decisions made by me, Salo Portillo MD, as attested by the provider's signature.
[2018-04-19] MEDS ORDERED: TYLENOL PO ONE (23:55)
--- NOTE | 2018-04-20 04:15 | HISTORY AND PHYSICAL ---
CHIEF COMPLAINT: Shortness of breath. HISTORY OF PRESENT ILLNESS: Patient is a 53-year-old male who has a known history of congestive heart failure. States he typically 80 mg of Lasix daily and usually has mild swelling in lower extremities. He is on oxygen at home at approximately 3 L. States that he has not had his medicine in about 5 days. He was arrested a few days ago for undisclosed reasons. Since then, he has not been on any of his medications. ALLERGIES: Codeine causing anaphylaxis, hydrocodone causing nausea and vomiting. MEDICATIONS: Lisinopril 2.5 daily, nitroglycerin, spironolactone 12.5 daily, aspirin 81, amiodarone 200, Lasix 80, Eliquis 2.5 daily, Coreg 6.25 b.i.d., pantoprazole 40. REVIEW OF SYSTEMS: As noted above, increased swelling in his lower extremities, increased shortness of breath, dyspnea on exertion, occasional chest pain. States he has felt more increased work of breathing. He has had some wheezing. Denies any nausea, vomiting, dysuria, urinary frequency, urgency. Denies constipation, melena, hematochezia. Denies hemoptysis. Denies any weight loss or weight gain but admits he has not checked his weight recently. Does have orthopnea. Denies any headaches, blurred vision, change in vision. Denies any focalized numbness, tingling, weakness in his extremities. Does have lower extremity edema. PAST MEDICAL HISTORY: Atrial fibrillation, congestive heart failure, COPD, recurrent pneumonia, chronic anxiety, hypoxic respiratory failure. He has had a hernia repair and back surgery in the past. FAMILY HISTORY: Positive for hypertension. SOCIAL HISTORY: The patient smokes approximately a pack a day. Does not drink alcohol although does have a history of alcohol abuse. Currently, he is incarcerated for the past few days. PHYSICAL EXAMINATION: VITAL SIGNS: Reviewed. Temperature 98 degrees, pulse 105 respiratory 20, BP 119/89, saturation currently 86% on 3 L. GENERAL: Patient is in mild respiratory distress. HEENT: Normocephalic. NECK: Supple. CARDIOVASCULAR: Appears regular rate and rhythm. CHEST: Decreased breath sounds bilaterally. No current crackles. Does have wheezing. Equal breath sounds bilaterally. ABDOMEN: Soft, nondistended. EXTREMITIES: Moves all extremities. He has 2+ edema in his bilateral lower extremities. SKIN: Warm, dry. Good pulses. NEUROLOGIC: Patient is awake, alert, oriented. He is in no current confusion. He appears oriented x3. LABS: Hemoglobin and hematocrit 11 and 36. Potassium 3.7, creatinine 1.1, glucose 108. BNP elevated at 10,000. His most recent on the chart was 20,000. ASSESSMENT: 1. Congestive heart failure with exacerbation. 2. Hypoxic respiratory failure. 3. Chronic obstructive pulmonary disease. 4. History of atrial fibrillation. PLAN: We will admit patient the hospital. IV Lasix at 80 mg twice daily. His most recent EF is documented at 20 to 25 percent. Unfortunately, patient is quite noncompliant. He was just recently in [place] and he left against medical advice. He does have a known history of coronary disease. His most recent echo was in December. cc: Neil Garber MD
[2018-04-20 05:26] LABS: HEMATOCRIT 34.1 % (42.0-52.0); HEMOGLOBIN 10.8 g/dL (14.0-18.0); MCH 26.6 PG (27-31); MCHC 31.7 g/dL (33-37); MPV 9.5 FL (7.4-10.4); RBC 4.06 XMIL (4.7-6.1); RDW 20.2 % (11.5-14.5); WBC 7.28 X1000 (4.8-10.8)
[2018-04-20 05:46] LABS: AGAP 12; ALB/GLOB RATIO 1.1; ALBUMIN 3.4 g/dL (3.5-5.0); ALKALINE PHOSPHATASE 87 U/L (32-122); BUN 13 mg/dL (8-22); CALCIUM 9.4 mg/dL (8.8-10.2); CHLORIDE 100 mmol/L (98-107); COSMO 287; ESTIMATED GFR > 60; GLUCOSE 199 mg/dL (70-104); GOT 25 U/L (10-34); GPT 25 U/L (10-44); POTASSIUM 3.8 mmol/L (3.5-5.1); SODIUM 141 mmol/L (136-145); TCO2 29 mmol/L (25-35); TOTAL BILIRUBIN 1.01 mg/dL (0.20-1.00); TOTAL PROTEIN 6.5 g/dL (6.3-8.3)
[2018-04-20] MEDS: ELIQUIS PO SCH ×2 (08:50→20:44)
[2018-04-20] MEDS: ALDACTONE PO SCH (08:50)
[2018-04-20] MEDS: PRINIVIL PO SCH (08:50)
[2018-04-20] MEDS: PROTONIX PO SCH (08:50)
[2018-04-20] MEDS: PLAVIX PO SCH (08:50)
[2018-04-20] MEDS: COREG PO SCH ×2 (08:50→20:44)
[2018-04-20] MEDS: CORDARONE PO SCH (08:51)
[2018-04-20] MEDS: LASIX IV SCH ×4 (08:51→21:29)
--- NOTE | 2018-04-20 09:00 | Diag Imaging Result Doc PS360 ---
EXAM: CHEST-1 VIEW INDICATION: sob TECHNIQUE: One view COMPARISON: 04/10/2018 FINDINGS: Diffuse increased interstitial markings suggesting pulmonary edema are essentially stable as compared to the previous study. No new consolidations are identified. There are probably trace effusions that are stable. There is stable cardiomegaly. IMPRESSION: Stable interstitial thickening suggesting edema. Electronically signed by Kit Wells 04/20/2018 8:58 AM
--- NOTE | 2018-04-20 10:25 | PROGRESS NOTE ---
DATE: 04/20/2018 HISTORY: Mr. Figueredo was admitted this morning. He is a 53 year old with known history of congestive heart failure. He was brought in, I think from [facility], he was in handcuffs. He complained of more shortness of breath. It has been coming on for the last couple of days. He has a history of apparently congestive heart failure by his report for a couple of years. PAST MEDICAL HISTORY: History of atrial fibrillation, history of congestive heart failure, COPD, recurrent pneumonia, chronic anxiety, hypoxic respiratory failure. He has had inguinal repair, I believe inguinal hernia repair, back surgery in the past. HOME MEDICATIONS: Amiodarone 200 mg a day, Eliquis 2.5 mg a day, aspirin 81 mg a day, Coreg 6.25 mg b.i.d., Lasix 80 mg p.o. daily, lisinopril 2.5 mg a day, Protonix 40 mg a day, spironolactone 12.5 mg a day. OBJECTIVE: This morning, he is awake and alert, still feels short of breath. He has distended neck veins. CVP was greater than 10 cm. Temperature is 97.8, pulse 100, respirations 16, blood pressure 103/65. His pupils are equal. Lungs with rales at both bases. No prolonged expiratory phase and no wheezing. Cardiovascular: Regular rate and rhythm. Monitor shows he is in sinus rhythm. He has had some PVCs. DIAGNOSTIC DATA: Lab review from yesterday showed white count 7280, hematocrit was 34, platelet count 194,000. Sodium 141, potassium 3.8, chloride 100, BUN of 13, creatinine 1.0. Blood sugar 199. Albumin 3.4. Chest x-ray stable. Interstitial thickening, interstitial edema. ASSESSMENT AND PLAN: 1. History of congestive heart failure, pulmonary venous hypertension, complaining of increased dyspnea. He was given some Lasix last night. Apparently he has a documented ejection fraction that is 20% to 25%. He was just recently at [place], and he left against medical advice. He has a history of coronary artery disease. 2. Coronary artery disease. I do not see evidence of cardiac ischemia at this point. His troponin is less than 0.01. Note that his ProBNP was 10,313. 3. Chronic obstructive pulmonary disease with COPD exacerbation with pulmonary venous hypertension. 4. History of atrial fibrillation. He appears to be in sinus rhythm at this time. He is already on Eliquis, I believe. Note his renal function looks good. So we are going to continue to try and diurese some fluid off him. His afterload and blood pressure appear well controlled. He is getting Lasix 80 mg IV q.12. Need to follow his electrolytes and supplement magnesium and potassium. I may go ahead and put him on p.o. potassium and magnesium now. cc: Marco Fatima MD
[2018-04-20] MEDS: MAG-OX PO SCH ×2 (10:50→20:45)
[2018-04-20] MEDS: KLOR-CON PO SCH ×2 (10:51→20:45)
[2018-04-20] MEDS: DUONEB (A & A) INH PRN ×2 (18:17→23:00)
[2018-04-20] MEDS: ZOFRAN IV PRN (22:26)
[2018-04-20] MEDS: NITROGLYCERIN SL PRN ×2 (23:00→23:08)
[2018-04-20] MEDS: TYLENOL PO PRN (23:06)
[2018-04-20 23:49] LABS: POTASSIUM 5.2 mmol/L (3.5-5.1)
[2018-04-21] MEDS ORDERED: TORADOL IV ONE (00:39)
[2018-04-21] MEDS: AMBIEN PO PRN (01:00)
[2018-04-21] MEDS: DUONEB (A & A) INH PRN ×5 (03:42→21:57)
[2018-04-21] MEDS: LASIX IV SCH ×2 (06:16→17:02)
--- NOTE | 2018-04-21 07:10 | PROGRESS NOTE ---
DATE: 04/21/2018 SUBJECTIVE: Mr. Figueredo is breathing better. Says he is feeling better. Remains afebrile. He slept pretty good last night according to his report. OBJECTIVE: Vital Signs: Temp 97.8 degrees, pulse 95, respirations 18, blood pressure 83/65. Urine output was about 3 L. HEENT: Pupils are equal and round. Neck: Neck veins still with mild distention. Heart: CVP appears to be about 10 cm of water pressure from the right atrium. ASSESSMENT AND PLAN: 1. Dilated severe cardiomyopathy. We are diuresing him. Appears to be pulmonary venous hypertension. It is improving. Estimated ejection fraction by previous echocardiogram is about 20%. 2. Coronary artery disease. No evidence of active ischemia at this point. Troponins are low, less than 0.01. 3. Chronic obstructive pulmonary disease. He did have some bronchospasm. We are giving him DuoNebs as needed, so chronic obstructive pulmonary disease exacerbation. 4. History of atrial fibrillation, history of atrial flutter. He has been cardioverted before. He is on Eliquis. REVIEW OF ORDERS: He is on amiodarone 200 mg every a.m., Eliquis 5 mg b.i.d., Coreg 6.25 mg b.i.d., Plavix 75 mg a day, Lasix 80 mg IV every 12 hours, Prinivil 5 mg daily, supplementing with magnesium oxide 800 mg b.i.d., Protonix 40 mg a day, potassium chloride 40 mEq b.i.d., spironolactone 12.5 mg a day, he gets Ambien 5 mg at night p.r.n. sleep. REVIEW OF LABORATORY DATA: Hematocrit is stable at 34, hemoglobin 10. Potassium was 5.2 on 04/20/2018, and we will check some more electrolytes this morning. He is on pace to hopefully be discharged tomorrow. cc: Marco Fatima MD
[2018-04-21 07:45] LABS: CALCIUM 9.5 mg/dL (8.8-10.2); CREATININE 1.7 mg/dL (0.7-1.2); POTASSIUM 5.9 mmol/L (3.5-5.1)
[2018-04-21] MEDS: ELIQUIS PO SCH ×2 (08:33→21:17)
[2018-04-21] MEDS: ALDACTONE PO SCH (08:33)
[2018-04-21] MEDS: PRINIVIL PO SCH (08:33)
[2018-04-21] MEDS: COREG PO SCH ×2 (08:33→23:24)
[2018-04-21] MEDS: CORDARONE PO SCH (08:34)
[2018-04-21] MEDS: PROTONIX PO SCH (08:34)
[2018-04-21] MEDS: MAG-OX PO SCH ×2 (08:34→21:17)
[2018-04-21] MEDS: PLAVIX PO SCH (08:34)
[2018-04-21] MEDS: KLOR-CON PO SCH ×2 (08:37→21:17)
[2018-04-21 14:43] LABS: ALLEN TEST YES; BE 2.7 mmoll (-3.0-3.0); BLOOD TYPE ARTERIAL; METHB 0.7 % (0.0-1.5); O2(CT) 15.5 mL/dL (15.0-23.0); O2HB 96.9 % (95.0-99.0); PCO2(98.6) 34 mmHg (35-45); PO2(98.6) 103 mmHg (60-100); SAMPLE BLOOD; SAO2 99.2 % (95.0-100.0); THB 11.3 g/dL (11.5-17.4); pH(98.6) 7.49 (7.35-7.45)
[2018-04-21 14:44] LABS: MODALITY VENTIMASK
--- NOTE | 2018-04-21 14:50 | Diag Imaging Result Doc PS360 ---
EXAM: CHEST-1 VIEW INDICATION: sob TECHNIQUE: One view COMPARISON: 04/19/2018 FINDINGS: The mild interstitial thickening suggesting edema has improved marginally. No new consolidation is identified. Cardiac silhouette is stable. IMPRESSION: Interval marginal improvement. Electronically signed by Kit Wells 04/21/2018 2:48 PM
[2018-04-21] MEDS: BIDEX PO SCH ×2 (15:43→21:17)
[2018-04-21] MEDS: ADVAIR 250/50 DISKUS INH SCH ×2 (20:16→22:00)
[2018-04-22] MEDS ORDERED: NS 500 ML IV ONE (04:52)
[2018-04-22 05:49] LABS: CALCIUM 8.8 mg/dL (8.8-10.2); CREATININE 1.6 mg/dL (0.7-1.2)
[2018-04-22 05:57] LABS: POTASSIUM 6.2 mmol/L (3.5-5.1)
[2018-04-22] MEDS ORDERED: CALCIUM GLUCONATE IV PUSH ONE (06:02)
[2018-04-22] MEDS ORDERED: SODIUM BICARBONATE 8.4% IV PUSH ONE (06:02)
[2018-04-22] MEDS ORDERED: HUMULIN R IV ONE (06:03)
[2018-04-22] MEDS ORDERED: D50W SYRINGE IV ONE (06:03)
[2018-04-22] MEDS ORDERED: ALBUTEROL 0.5% INH CONC FOR HYPERKALEMIA INH ONE (06:04)
--- NOTE | 2018-04-22 06:35 | EKG Report ---
Test Performed on : 04/22/2018 06:18:21 AM Test Reason : hyperkalemia Blood Pressure : / mmHG Vent. Rate : 084 BPM Atrial Rate : 084 BPM P-R Int : 288 ms QRS Dur : 112 ms QT Int : 416 ms P-R-T Axes : 000 260 129 degrees QTc Int : 491 ms Sinus rhythm. with 1st degree AV block. Right superior axis deviation Low voltage QRS Incomplete right bundle branch block Septal infarct , age undetermined Abnormal ECG When compared with ECG of 20-APR-2018 22:27, (Unconfirmed) Sinus rhythm. has replaced Atrial flutter. Incomplete right bundle branch block is now present Septal infarct is now present Unconfirmed Result
--- NOTE | 2018-04-22 07:31 | EKG Report ---
Test Performed on : 04/20/2018 10:27:52 PM Test Reason : Chest Pain Blood Pressure : / mmHG Vent. Rate : 098 BPM Atrial Rate : 196 BPM P-R Int : 000 ms QRS Dur : 090 ms QT Int : 368 ms P-R-T Axes : 075 043 131 degrees QTc Int : 469 ms Atrial flutter. with variable AV block. with premature ventricular or aberrantly conducted complexes. Nonspecific ST and T wave abnormality Prolonged QT Abnormal ECG When compared with ECG of 19-APR-2018 22:28, (Unconfirmed) No significant change was found Unconfirmed Result
[2018-04-22] MEDS: ALDACTONE PO SCH (08:23)
[2018-04-22] MEDS: COREG PO SCH ×2 (08:24→21:36)
[2018-04-22] MEDS: BIDEX PO SCH ×2 (08:24→21:36)
[2018-04-22] MEDS: PRINIVIL PO SCH (08:24)
[2018-04-22] MEDS: PLAVIX PO SCH (08:24)
[2018-04-22] MEDS: CORDARONE PO SCH (08:24)
[2018-04-22] MEDS: PROTONIX PO SCH (08:24)
[2018-04-22] MEDS: MAG-OX PO SCH ×2 (08:24→21:36)
[2018-04-22] MEDS: ELIQUIS PO SCH ×2 (08:24→21:36)
[2018-04-22] MEDS: LASIX IV SCH ×2 (08:25→21:35)
--- NOTE | 2018-04-22 08:44 | PROGRESS NOTE ---
DATE: 04/22/2018 SUBJECTIVE: Mr. Figueredo was sitting up in a chair. He is complaining of more shortness of breath. Nurses reported that he has refused some of his medication including the Lasix. He does not feel like the swelling is coming down and he just does not feel very good. His potassium was a little high today. OBJECTIVE: Temperature 98.1 degrees, pulse 67, respirations 15, blood pressure 91/56. The blood pressure has been running in the 80s and 90s systolic. His urine output was 2500 mL. Chest x- ray, interval improvement of mild interstitial thickening suggesting edema has improved marginally. No new consolidation appreciated. ASSESSMENT AND PLAN: 1. Dilated cardiomyopathy, ischemic cardiomyopathy. Estimated ejection fraction on previous echocardiogram was about 20%. Continue his Lasix. His potassium was high. We will stop his supplementary potassium. Note, his creatinine is stable at 1.6. Sodium has dropped to 129, potassium 6.2, chloride is 94, BUN 33, creatinine 1.6. Troponin has been less than 1. 2. History of coronary artery disease. I do not see any evidence of active ischemia right now. 3. Chronic obstructive pulmonary disease with some bronchospasm. He is on some DuoNebs and started a steroid inhaler. 4. Atrial fibrillation, history of atrial flutter. He has been cardioverted before and remains in sinus rhythm. I do not know if he would be one that we need to start and see if he would be a candidate for Entresto. [facility] He is on Prinivil 5 mg a day. He is on Coreg 6.25 mg twice a day. He is on Cordarone 200 mg every morning, Plavix 75 mg a day, spironolactone 12.5 mg daily. We might be able to go up on the spironolactone. I will consult cardiology to help with some decisions on treatment. We have given him an ampule of bicarbonate for his potassium. I will check that again this afternoon. I will stop his supplemental potassium. cc: Marco Fatima MD
[2018-04-22] MEDS ORDERED: SAMSCA PO ONE (09:53)
[2018-04-22 10:40] LABS: CALCIUM 8.9 mg/dL (8.8-10.2); CREATININE 1.6 mg/dL (0.7-1.2); POTASSIUM 5.3 mmol/L (3.5-5.1)
--- NOTE | 2018-04-22 11:37 | EKG Report ---
Test Performed on : 04/19/2018 10:28:21 PM Test Reason : sob Blood Pressure : / mmHG Vent. Rate : 106 BPM Atrial Rate : 212 BPM P-R Int : 000 ms QRS Dur : 086 ms QT Int : 346 ms P-R-T Axes : 077 084 114 degrees QTc Int : 459 ms Atrial flutter. with 2:1 AV conduction. Anterior infarct , age undetermined Abnormal ECG When compared with ECG of 09-APR-2018 12:07, (Unconfirmed) Anterior infarct is now present ST no longer depressed in Anterior leads Nonspecific T wave abnormality, improved in Inferior leads Nonspecific T wave abnormality no longer evident in Anterior leads QT has lengthened Unconfirmed Result
[2018-04-22] MEDS: PRIMACOR 20 MG/D5W 100 ML 20 MG/100 ML IVPB IV SCH ×2 (11:44→19:09)
[2018-04-22] MEDS: ADVAIR 250/50 DISKUS INH SCH ×2 (12:00→19:45)
--- NOTE | 2018-04-22 12:19 | CARDIOLOGY CONSULTATION ---
DATE: 04/22/2018 CHIEF COMPLAINT ON PRESENTATION: Shortness of breath. HISTORY OF PRESENT ILLNESS: Mr. Figueredo is a 53-year-old, white male with a history of ischemic cardiomyopathy who was recently in the hospital at the end of March. Around that time, his reason for hospitalization was medication noncompliance. He subsequently was discharged. He again went home and had some noncompliance with medications. He re-presented short of breath. Incidentally, he was also arrested a few days prior to presentation. He has not been having any chest pain. The patient does complain of orthopnea as well as cool extremities. PAST MEDICAL HISTORY: 1. Ischemic cardiomyopathy. He had a catheterization in August of 2017. Left main had no significant disease. The LAD had a smooth tapering 90% lesion. Circumflex had a 40% proximal lesion, followed by a 50% lesion in the obvious marginal. The right coronary artery was large with a proximal 30% disease and 90% stenosis extending into the ostium of a posterolateral branch. The patient had a PCI with a drug-eluting stent to the left anterior descending as well as the right coronary artery extending into the posterolateral branch, jailing the PDA. 2. Atrial flutter with a cardioversion in August 2017. 3. Hypertension. 4. Hyperlipidemia. 5. COPD. 6. Recurrent noncompliance with medications. SOCIAL HISTORY: Polysubstance abuse. The patient has had frequent arrests and incarcerations. He does smoke cigarettes. FAMILY HISTORY: Significant for hypertension. REVIEW OF SYSTEMS: A 10 system review of systems is negative except for those things mentioned in the HPI. PHYSICAL EXAMINATION: Vital Signs: The patient is afebrile. His heart rate is 67. His blood pressure most recently was 91/56. He has had systolics anywhere from the 70s to low 100s recently. His Is and Os seem to be positive. He has a number of weights not measured but overall, he likely has a positive fluid balance. General: He is in no acute distress. He is an ill-appearing, white male. HEENT: Oropharynx is moist. Poor dentition. Eye examination shows pink conjunctivae, white sclerae. Neck: Examination shows no obvious thyromegaly or thyroid tenderness. Cardiovascular: He sounds to be in a regular rate and rhythm. I do not hear any obvious murmurs. He has no S3. He has marked elevation of his JVP, 2+ lower extremity edema. He did have mildly cool distal extremities. Chest: Sounds relatively clear to auscultation bilaterally. He has no increased work of breathing. Abdomen: Soft, nontender, nondistended. He has no obvious organomegaly. Skin Examination: Warm and dry throughout. PERTINENT DATA: His sodium is 131 today, potassium 5.3, BUN 30, creatinine is 1.6 which is up from 1.1 on presentation. His proBNP is 5373 which is down from 10,000 on presentation. He had an EKG done today, demonstrating what appears to be sinus rhythm, poor R-wave progression. No acute ischemic changes. His chest x-ray demonstrates mild interstitial thickening, suggesting edema that has improved slightly from previous. ASSESSMENT: Mr. Figueredo is a 53-year-old gentleman with a history of polysubstance abuse, frequent incarcerations, ischemic cardiomyopathy, and frequent issues with noncompliance. PLAN: The reason for his hospitalization on this visit is not noncompliance resulting in a systolic heart failure exacerbation. His ejection fraction was most recently evaluated via [facility] in December and it was 25%. He had a transthoracic echocardiogram in August showing an EF of 15 to 20 percent. I do not see a reason to repeat that study. We will continue him on the current medications. He was given a dose of Samsca. I will make a trial of a low dose infusion of milrinone. We will recheck his laboratories in the morning including a basic metabolic panel and a proBNP. cc: Brian Reilly MD
[2018-04-22 15:04] LABS: CALCIUM 8.8 mg/dL (8.8-10.2); CREATININE 1.6 mg/dL (0.7-1.2); POTASSIUM 5.4 mmol/L (3.5-5.1)
[2018-04-22 16:11] LABS: URINE SOURCE CLEAN CATCH
[2018-04-22 16:17] LABS: BILIRUBIN URINE NEGATIVE (NEGATIVE); BLOOD URINE NEGATIVE (NEGATIVE); COLOR STRAW; GLUCOSE URINE NEGATIVE (NEGATIVE); KETONE URINE NEGATIVE (NEGATIVE); LEUKOCYTES URINE NEGATIVE (NEGATIVE); NITRITE URINE NEGATIVE (NEGATIVE); PH URINE 7.5; PROTEIN URINE NEGATIVE (NEGATIVE); TURBIDITY URINE CLEAR (CLEAR); UROBILINOGEN URINE NORMAL (NORMAL)
[2018-04-22 16:18] LABS: UR EPITHELIAL CELLS <10 /HPF (<10); URINE BACTERIA NEGATIVE /HPF; URINE RBC <10 /HPF (<10); URINE WBC <10 /HPF (<10)
[2018-04-22 17:18] LABS: CALCIUM 8.9 mg/dL (8.8-10.2); CREATININE 1.5 mg/dL (0.7-1.2)
[2018-04-22] MEDS: TYLENOL PO PRN (22:41)
[2018-04-22] MEDS: AMBIEN PO PRN (22:41)
[2018-04-23] MEDS: PRIMACOR 20 MG/D5W 100 ML 20 MG/100 ML IVPB IV SCH ×3 (04:21→21:26)
[2018-04-23 05:43] LABS: HEMATOCRIT 34.2 % (42.0-52.0); HEMOGLOBIN 10.9 g/dL (14.0-18.0); MCH 27.1 PG (27-31); MCHC 31.9 g/dL (33-37); MCV 85.1 FL (81-99); MPV 10.3 FL (7.4-10.4); RBC 4.02 XMIL (4.7-6.1); RDW 20.6 % (11.5-14.5); WBC 9.2 X1000 (4.8-10.8)
[2018-04-23 06:19] LABS: CALCIUM 9.1 mg/dL (8.8-10.2); CREATININE 1.6 mg/dL (0.7-1.2); MAGNESIUM 2.7 mg/dL (1.5-2.7); POTASSIUM 4.9 mmol/L (3.5-5.1)
[2018-04-23] MEDS: ADVAIR 250/50 DISKUS INH SCH ×2 (07:55→19:30)
[2018-04-23] MEDS: DUONEB (A & A) INH PRN ×2 (07:55→19:30)
--- NOTE | 2018-04-23 09:03 | Diag Imaging Result Doc PS360 ---
EXAM: CHEST-PORTABLE INDICATION: chf TECHNIQUE: One view COMPARISON: 04/21/2018 FINDINGS: There is persistent mild interstitial thickening indicating mild edema. There is probably a small effusion on the left that is essentially stable. No new consolidation is appreciated. Cardiac silhouette is stable. IMPRESSION: Essentially stable chest. Electronically signed by Kit Wells 04/23/2018 9:01 AM
[2018-04-23] MEDS: MAG-OX PO SCH ×2 (09:04→21:25)
[2018-04-23] MEDS: BIDEX PO SCH ×2 (09:04→21:25)
[2018-04-23] MEDS: CORDARONE PO SCH (09:05)
[2018-04-23] MEDS: ELIQUIS PO SCH ×2 (09:05→21:25)
[2018-04-23] MEDS: PLAVIX PO SCH (09:05)
[2018-04-23] MEDS: COREG PO SCH ×2 (09:05→21:25)
[2018-04-23] MEDS: PROTONIX PO SCH (09:06)
[2018-04-23] MEDS: ALDACTONE PO SCH (10:25)
[2018-04-23] MEDS: ULTRAM PO PRN ×2 (10:25→21:34)
[2018-04-23] MEDS: LASIX IV SCH ×2 (10:26→21:24)
[2018-04-23] MEDS: AQUAPHOR OINTMENT TOP SCH (10:26)
[2018-04-23 10:44] LABS: UR CREAT RANDOM 19.8 mg/dL (14-26); UR SODIUM 39 mmoll; UR UREA NITROGEN RANDOM 220 mg/dL
[2018-04-23 10:45] LABS: UR PROT RANDOM < 4.0 mg/dL
--- NOTE | 2018-04-23 13:21 | NEPHROLOGY CONSULTATION ---
DATE: 04/23/2018 REASON FOR ADMISSION: Increased work of breathing and some lower extremity swelling. REASON FOR CONSULTATION: Acute kidney injury on chronic kidney disease stage 3, associated with congestive heart failure and lower extremity swelling. CONSULTING PHYSICIAN: Dr. Michelle Velasquez. HISTORY OF PRESENT ILLNESS: Mr. Figueredo is a 53-year-old white male who had been seen by our practice on a previous admission in August 2017. At that time, he also had admission for increased work of breathing with acute kidney injury with need for medical assistance. It is noted that patient has had frequent hospitalizations and ER visits since that period of time. His last admission on 04/09/2018. At that time, patient was also admitted for increased work of breathing, left the hospital AMA on 04/12/2018. He presented to the emergency room on 04/20/2018 at [facility], was found to have increased work of breathing, history of congestive heart failure. States that he had been on Lasix 80 mg daily which had controlled his lower extremity swelling and shortness of breath. He is on home O2. Unfortunately, he states that he was arrested several days ago and had not received his medication, did not indicate why. During this period of time, patient has continued to have an elevation in his creatinine currently up to 1.6, though it appears his baseline creatinine has remained at 1.1 to 1.3 since his hospitalization in August. During this hospitalization, his creatinine has remained stable at 1.6 to 1.7. He continues with lower extremity edema. He has what appears to be PVD. He has been on Lasix 80 q.12 hours and spironolactone 12.5 mg daily. He received an IV fluid bolus yesterday, also received Samsca 15 mg yesterday a.m., followed by dose per cardiology. The patient was also started on Milrinone 20 mg IV to assist with his congestive heart failure and lower extremity swelling. He has chronic atrial fibrillation, continues on amiodarone. He currently denies any chest pain. States that he is not short of breath in the supine position, though he is on his side. Denies any nausea, vomiting, or diarrhea. No fever or chills. PAST MEDICAL HISTORY: Prominent for atrial fibrillation, he is on anticoagulation. Congestive heart failure, COPD, recurrent pneumonia, chronic anxiety, hypoxic respiratory failure, hernia repair and back surgery in the past. He has known CKD stage 2 with a baseline creatinine of 1 to 1.3. FAMILY HISTORY: Positive for hypertension. Negative for kidney disease. SOCIAL HISTORY: Patient smokes a pack a day. States he does not drink any alcohol, though noted he stated he had a history of alcohol abuse in the past. Previously noted patient was visiting from [place]. States he uses marijuana once a week. ALLERGIES: Listed as codeine and hydrocodone, codeine causing anaphylaxis, hydrocodone causing nausea and vomiting. HOME MEDICATIONS: Have been listed as: 1. Lisinopril. 2. Nitroglycerin. 3. Spironolactone. 4. Aspirin. 5. Amiodarone. 6. Lasix. 7. Eliquis. 8. Coreg. 9. Pantoprazole. REVIEW OF SYSTEMS: Review of systems x10 with pertinent positives listed above in the HPI. MOST RECENT VITAL SIGNS: Temperature 97.3 degrees, blood pressure 119/93, heart rate is 80, respirations are 16 on 3 L nasal cannula. Last recorded saturation is 97%. He has had 2342 in, 7125 out. The patient is in a negative 3 L fluid balance. LABORATORY DATA: Sodium 137, potassium 4.9, chloride 96, CO2 29, BUN 27, creatinine 1.6, glucose 131. Anion gap of 12, calcium 9.1, magnesium 2.7. White count 9.2, hemoglobin 10.9, hematocrit 34.2 with a platelet count of 194,000. Urinalysis is negative. Urine drug screen is positive for THC. BNP is 4846. Fractionated excretion of urea on urine electrolytes is 65.84 with a FENa score of 2.3%. The patient has a renal ultrasound currently pending though he has been voiding he states adequate amount. PHYSICAL EXAMINATION: General: This is a 53-year-old white male. He is resting in bed. He appears in no acute distress though chronically ill. Skin: Warm and dry. HEENT: Normocephalic, atraumatic. Conjunctivae is pale pink. He has DENNIS. Mucous membranes are dry. Neck: Supple. Trachea midline. He has trace to 1+ JVD in the supine side position. Cardiovascular: He has irregular, irregular rate and rhythm. He is atrial fibrillation on the telemetry. Lungs: Diminished breath sounds bilateral with poor inspiratory effort. Remains on O2. Equal excursion. Abdomen: Soft, nontender. Positive bowel sounds. Genitourinary: Not inspected. Patient is wanting to sit on the side of the bed to void. Extremities: He has 2+ bilateral lower extremity edema. These are erythematous in appearance, tender to touch. These are mildly cool with distant pulses. Neurological: He is alert and oriented to person and to place and most recent events. ASSESSMENT AND PLAN: 1. Acute kidney injury on chronic kidney disease stage 2. The patient's baseline creatinine is 1.1 to 1.2. Creatinine is now up to 1.6 with a BUN of 27. The patient has an elevated fractionated excretion of urea indicating more intrarenal. He is not requiring any pressor supports though he is receiving large doses of Lasix for his congestive heart failure. Adequate urine out is documented. No indications for intervention. 2. Electrolytes and acid-base balance. These remain fairly stable. 3. Anemia. Hemoglobin of 10.9. We will defer to the primary care team. 4. Congestive heart failure with acute on chronic. This is now being followed by Cardiology and the Primary Care. He does remain on his amiodarone for his atrial fibrillation. Previous known ejection fraction had been shown to be 15 to 20 percent in August 2017. Last noted ejection fraction per [facility] was at 25% in December 2017. At this time, there is no indication for intervention. We will continue to follow with you. I would like to thank you for allowing us to follow with this patient. Dictated by KRISH Olvera for Erasto Hi MD cc: KRISH Olvera MD
--- NOTE | 2018-04-23 14:44 | Diag Imaging Result Doc PS360 ---
EXAM: US RENAL 2 (RETROPER) COMPLETE INDICATION: hyacinth TECHNIQUE: COMPARISON: Abdominal ultrasound dated 02/06/2018 FINDINGS: The kidneys are grossly normal in echotexture with no discrete renal mass or hydronephrosis. The right kidney measures 9.4 cm and the left kidney measures 8.4 cm in the greatest longitudinal axes. Right renal cortex measures up to 1.1 cm and the left renal cortex measures up to 1.3 cm in thickness. The urinary bladder is unremarkable. Fairly small volume ascites is seen tracking around the liver and layering in the pelvis. IMPRESSION: Incidental ascites. Unremarkable renal ultrasound, otherwise. Electronically signed by Kit Wells 04/23/2018 2:41 PM
--- NOTE | 2018-04-23 15:16 | CARDIOLOGY PROGRESS NOTE ---
DATE: 04/23/2018 SUBJECTIVE: Mr. Figueredo reports he has had significant urine output over the last 24 hours. He continues to be somewhat short of breath and weak. OBJECTIVE: Vital signs: On physical, he is afebrile. His heart rate is 80, his blood pressure is 119/63. Systolics have ranged anywhere from the 70s to low 100s predominantly. Intake and output: His intakes and outputs are significantly negative over the last 24 hours, being net negative around 6 L. General: He is in no acute distress. Cardiovascular: He sounds to be in a regular rate and rhythm. I do not hear any obvious murmurs. He continues to have a significantly distended jugular venous pulse. He has 1+ bilateral lower extremity edema with warm and well-perfused lower extremities. Chest: His chest exam sounds relatively clear. He has no increased work of breathing. Abdomen: Soft, nontender, nondistended. He has no obvious organomegaly. Skin: Warm and dry throughout. PERTINENT DATA: His white count is 9.2, hematocrit 34, platelet count is 194,000. His sodium is 137, potassium 4.9, his BUN is 27, creatinine 1.6. His proBNP is 4846 which is down from a total of 10,313 on presentation. ASSESSMENT: Mr. Figueredo is a 53-year-old gentleman with an ischemic cardiomyopathy. PLAN: Patient seems to be diuresing much better at this point. He has had a significant a negative fluid balance over the last 24 hours. We will continue him on the current medications for the time being. Hopefully, we can transition him off of Milrinone in the next 24 to 48 hours. He continues on carvedilol, apixaban, amiodarone, Plavix, and spironolactone. cc: Brian Reilly MD
--- NOTE | 2018-04-23 18:27 | PROGRESS NOTE ---
DATE: 04/23/2018 SUBJECTIVE: The patient is resting comfortably in bed. He complains of pain in his feet and swelling in his legs. OBJECTIVE: Vital Signs: Temperature 97.5 degrees, blood pressure 80/44, heart rate 91, respirations 14, O2 saturation 98% on 4 L nasal cannula. Intake 2.3 L; output 7.1 L. General: This is a chronically ill-appearing, elderly male lying in bed in no acute distress. Heart: S1, S2 normal. Regular rate and rhythm. Lungs: Equal air entry bilaterally. No wheezing. No rales. Abdomen: Positive bowel sounds. Soft, nontender, nondistended. Extremities: 2+ edema. The patient has erythema involving both legs. Neurologic: The patient is alert and oriented x4. LABS: White blood cell count 9.2, hemoglobin 10, hematocrit 34 platelets 194. Sodium 137, potassium 4.9, chloride 96, CO2 29. BUN 27, creatinine 1.6, glucose 131. ProBNP 4846. ASSESSMENT AND PLAN: 1. Acute on chronic systolic congestive heart failure exacerbation. Continue with the current management as directed by the damage assessor. 2. Acute kidney injury on chronic kidney disease. We will consult Nephrology. 3. Chronic obstructive pulmonary disease. Continue with bronchodilator therapy. 4. Atrial fibrillation. The patient is rate controlled. Continue on Coreg and Eliquis. 5. Ischemic cardiomyopathy. Aware. cc: Michelle Velasquez MD MTDD
[2018-04-23] MEDS: TYLENOL PO PRN (19:48)
[2018-04-23] MEDS: AMBIEN PO PRN (21:37)
[2018-04-23] MEDS: ZOFRAN IV PRN (23:38)
[2018-04-24] MEDS: ULTRAM PO PRN ×3 (00:41→23:48)
[2018-04-24] MEDS: LASIX IV SCH ×2 (05:27→17:09)
[2018-04-24 05:47] LABS: HEMATOCRIT 32.7 % (42.0-52.0); HEMOGLOBIN 10.3 g/dL (14.0-18.0); MCH 27.1 PG (27-31); MCHC 31.5 g/dL (33-37); MCV 86.1 FL (81-99); MPV 10.5 FL (7.4-10.4); RBC 3.8 XMIL (4.7-6.1); RDW 20.4 % (11.5-14.5); WBC 7.44 X1000 (4.8-10.8)
[2018-04-24 06:07] LABS: CALCIUM 9.1 mg/dL (8.8-10.2); CREATININE 1.4 mg/dL (0.7-1.2); MAGNESIUM 2.7 mg/dL (1.5-2.7); PHOSPHORUS 4.5 mg/dL (2.7-4.5); POTASSIUM 4.2 mmol/L (3.5-5.1)
[2018-04-24] MEDS: PRIMACOR 20 MG/D5W 100 ML 20 MG/100 ML IVPB IV SCH ×2 (07:38→16:20)
[2018-04-24] MEDS: ADVAIR 250/50 DISKUS INH SCH ×2 (07:59→19:22)
[2018-04-24] MEDS ORDERED: FIORICET PO ONE (08:11)
--- NOTE | 2018-04-24 08:43 | NEPHROLOGY PROGRESS NOTE ---
DATE: 04/24/2018 SUBJECTIVE: Mr. Figueredo is resting in bed. His head of the bed is elevated. He states that he is doing much better in his breathing. Denies any chest pain. His O2 is off. OBJECTIVE: His most recent vital signs his last temperature 97.6 degrees, blood pressure 76/51, heart rate, 84 respirations 24. He is currently on 4 L nasal cannula, last recorded saturation 98%. He has had 1167 in 5950 out to void.Labs: Sodium is 137, potassium 4.2, chloride 97, CO2 28, BUN 20, creatinine 1.4, glucose 106. His anion gap is 12, calcium 9.1, phosphorus 4.5, magnesium is 2.7. He has a white count of 7.44, hemoglobin 10.3, hematocrit 32.7 with a platelet count of 158,000. PHYSICAL EXAMINATION: General: This is a 53-year-old white male currently resting in bed. He appears in no acute distress. Skin: Warm and dry. HEENT: Normocephalic, atraumatic. Conjunctiva is pale. He has DENNIS. Mucous membranes are dry. Neck: Supple, trachea midline. No evidence of JVD today. Cardiovascular: He has irregular irregular rate and rhythm. He has atrial fib on the monitor, no murmur or gallop appreciated. Lungs: Clear to auscultation anterior, diminished posterior bases, though no crackles auscultated. He remains on room air. Abdomen: Large, soft, round, nontender. Positive bowel sounds. Genitourinary: Not inspected. Patient has been voiding with adequate amounts documented. Extremities: Remain erythematous though less tender to touch, less reddened from yesterday. No edema present. Neurological: He is alert and oriented to person and to place and most recent events. ASSESSMENT AND PLAN: 1. Acute kidney injury on chronic kidney disease stage 2. Patient's baseline creatinine is 1.1 to 1.2. Creatinine is at 1.4 from 1.6. BUN remains stable. Adequate urine output, no indications for intervention. 2. Electrolytes and acid-base balance. These are all acceptable. 3. Anemia. This is close to target. 4. Congestive heart failure. Patient continues to receive Lasix b.i.d. with good response. No indications for intervention from our perspective. I would like to thank you for allowing us to follow with this patient. Dictated by KRISH Olvera for Erasto Hi MD Face to face encounter, data reviewed, discussed with Joelle Woo on 04/24/18. I agree with the above assessment and plan of care. cc: KRISH Olvera MD [facility]
[2018-04-24] MEDS: CORDARONE PO SCH (09:33)
[2018-04-24] MEDS: PLAVIX PO SCH (09:33)
[2018-04-24] MEDS: BIDEX PO SCH ×2 (09:33→21:40)
[2018-04-24] MEDS: COLACE PO SCH ×2 (09:33→21:40)
[2018-04-24] MEDS: ELIQUIS PO SCH ×2 (09:33→21:40)
[2018-04-24] MEDS: MIRALAX PO SCH (09:33)
[2018-04-24] MEDS: MAG-OX PO SCH ×2 (09:34→21:40)
[2018-04-24] MEDS: PROTONIX PO SCH (09:34)
[2018-04-24] MEDS: COREG PO SCH ×2 (09:34→21:40)
[2018-04-24] MEDS: AQUAPHOR OINTMENT TOP SCH (09:34)
[2018-04-24] MEDS: ALDACTONE PO SCH (10:42)
[2018-04-24] MEDS: FIORICET PO PRN (13:37)
[2018-04-24] MEDS: ZOFRAN IV PRN ×2 (13:37→21:35)
--- NOTE | 2018-04-24 13:59 | CARDIOLOGY PROGRESS NOTE ---
DATE: 04/24/2018 SUBJECTIVE: Mr. Figueredo reports he has a headache today but he does not have any orthopnea. PHYSICAL EXAMINATION: Vital Signs: He is afebrile. Heart rate 86. His most recent blood pressure was 79/50 and he has had frequent systolics in the 70s to 80s. His Is and Os continue to be quite negative. Over the last 2 days, he has a net negative output of around 9.5 to 10 L. General: He is in no acute distress. Cardiovascular: He sounds to be in a regular rate and rhythm. He has no murmurs. Extremities: He has trace to 1+ bilateral lower extremity edema. Warm and well perfused lower extremities. Chest: His chest exam sounds clear bilaterally. He has no increased work of breathing. His JVP continues to be elevated. PERTINENT DATA: Sodium is 137, potassium is 4.2, his BUN is 20, creatinine is 1.4, his magnesium level is 2.7. ASSESSMENT: Mr. Figueredo is a 53-year-old gentleman with a ischemic cardiomyopathy. PLAN: We will continue him on the current regimen as he seems to be diuresing. His renal function is improving. Hopefully, we can get him off the milrinone in the next 24 hours or so. I will continue him on the current regimen. cc: Brian Reilly MD
--- NOTE | 2018-04-24 18:58 | PROGRESS NOTE ---
DATE: 04/24/2018 SUBJECTIVE: The patient is resting comfortably in bed. He complains of a headache that started yesterday afternoon and has been persistent. OBJECTIVE: Vital Signs: Temperature 97.8, blood pressure 82/51, heart rate 93, respirations 18. O2 sats 94% on room air. General: This is an elderly male lying comfortably in bed in no acute distress. Heart: S1, S2 normal. Regular rate and rhythm. Lungs: Equal air entry bilaterally. No wheezing. No rales. No rhonchi. Abdomen: Positive bowel sounds. Soft, nontender, nondistended. Extremities: Trace pedal edema. No cyanosis. No calf tenderness. Neurologic: The patient is alert and oriented x 3. No focal neurologic deficits noted. LABS: White blood cell count 7.4, hemoglobin 10, hematocrit 32, platelets 158,000. Sodium 137, potassium 4.2, chloride 97, CO2 28, BUN 20, creatinine 1.4, glucose 106, calcium 9.1, phosphorus 4.5, magnesium 2.7. ASSESSMENT AND PLAN: 1. Acute on chronic systolic CHF exacerbation. Slowly improving. The patient remains on a Primacor drip. Further management as per the senior project engineer. 2. Acute kidney injury on chronic kidney disease. Improved. 3. COPD. Continue on bronchodilator therapy. 4. Ischemic cardiomyopathy. Aware. 5. Atrial fibrillation. The patient is rate controlled. Continue on Coreg and Eliquis. 6. Headache. Will give the patient a dose of Fioricet. Will also check a head CT. cc: Michelle Velasquez MD
--- NOTE | 2018-04-24 21:49 | Diag Imaging Result Doc PS360 ---
EXAM: CT HEAD W/O CONTRAST HISTORY: headache TECHNIQUE: CT head without contrast COMPARISON: 09/01/2017 FINDINGS: No parenchymal hemorrhage. No epidural or subdural hematoma. No subarachnoid hemorrhage. No mass identified on this noncontrasted exam. No hydrocephalus. There is opacification of the left maxillary sinus. Prominent mucus in the right maxillary sinus, left ethmoid sinus, and left frontal sinus. Mild mucosal thickening in the left sphenoid sinus. IMPRESSION: 1.No hemorrhage 2.Sinusitis This exam was performed using automated exposure control, adjustment of mA or kV according to patient size, and/or use of iterative reconstruction technique. Electronically signed by Rad Borja 04/24/2018 9:47 PM
[2018-04-24] MEDS: AMBIEN PO PRN (23:49)
[2018-04-25 06:04] LABS: AGAP 10; BUN 18 mg/dL (8-22); CHLORIDE 92 mmol/L (98-107); COSMO 266; CREATININE 1.2 mg/dL (0.7-1.2); ESTIMATED GFR > 60; GLUCOSE 92 mg/dL (70-104); MAGNESIUM 2.5 mg/dL (1.5-2.7); POTASSIUM 3.9 mmol/L (3.5-5.1); SODIUM 132 mmol/L (136-145); TCO2 30 mmol/L (25-35)
[2018-04-25 06:27] LABS: HEMATOCRIT 34.3 % (42.0-52.0); HEMOGLOBIN 10.6 g/dL (14.0-18.0); MCH 26.6 PG (27-31); MCHC 30.9 g/dL (33-37); MPV 10.3 FL (7.4-10.4); RBC 3.99 XMIL (4.7-6.1); RDW 20.6 % (11.5-14.5); WBC 6.8 X1000 (4.8-10.8)
[2018-04-25] MEDS: PRIMACOR 20 MG/D5W 100 ML 20 MG/100 ML IVPB IV SCH ×2 (07:22→11:46)
[2018-04-25] MEDS: LASIX IV SCH ×2 (07:25→17:06)
[2018-04-25] MEDS: ZOFRAN IV PRN ×3 (07:31→20:31)
[2018-04-25] MEDS: ULTRAM PO PRN (07:32)
[2018-04-25] MEDS: ADVAIR 250/50 DISKUS INH SCH ×2 (07:59→19:34)
[2018-04-25] MEDS ORDERED: DILAUDID ONE (10:29)
[2018-04-25] MEDS: AQUAPHOR OINTMENT TOP SCH (10:35)
[2018-04-25] MEDS: ALDACTONE PO SCH (10:36)
[2018-04-25] MEDS: ELIQUIS PO SCH ×2 (10:36→21:20)
[2018-04-25] MEDS: BIDEX PO SCH ×2 (10:36→21:20)
[2018-04-25] MEDS: PROTONIX PO SCH (10:37)
[2018-04-25] MEDS: CORDARONE PO SCH (10:37)
[2018-04-25] MEDS: TOPAMAX PO SCH (10:37)
[2018-04-25] MEDS: MAG-OX PO SCH ×2 (10:37→21:20)
[2018-04-25] MEDS: PLAVIX PO SCH (10:37)
[2018-04-25] MEDS: AUGMENTIN PO SCH ×2 (10:37→21:21)
[2018-04-25] MEDS: COREG PO SCH ×2 (10:37→21:20)
[2018-04-25] MEDS: COLACE PO SCH ×2 (10:38→21:24)
[2018-04-25] MEDS: MIRALAX PO SCH (10:38)
[2018-04-25] MEDS ORDERED: SAMSCA PO ONE (12:37)
--- NOTE | 2018-04-25 13:14 | CARDIOLOGY PROGRESS NOTE ---
DATE: 04/25/2018 SUBJECTIVE: Mr. Figueredo had episodes of nausea and vomiting that started yesterday. He continues to have a significant level of headache. PHYSICAL EXAMINATION: Vital Signs: He is afebrile, heart rate of 95. His blood pressure is 88/55 and continues to run primarily in the 70s to 90s systolic. His Is and Os continue to be markedly negative. His cumulative output for the hospitalization is net -8.5 L. General: He is in no acute distress. Cardiovascular: He sounds to be in a regular rate and rhythm. He has no obvious murmurs. He has no S3. He has no lower extremity edema. Chest: Examination sounds relatively clear. He has no increased work of breathing. Abdomen: Soft, nontender. His JVP continues to be elevated. PERTINENT DATA: Sodium 132, BUN 18, creatinine is 1.2. ProBNP is 4834. ASSESSMENT: Ms. Figueredo is a 53-year-old gentleman with an ischemic cardiomyopathy. PLAN: I will give him another dose of Samsca. One hour after the Samsca was administered, we will cut the milrinone by half. We will run it for another 30 minutes on that half rate dose and then stopped the medication. I am concerned that his headache may be secondary to the milrinone. We were trying to symptomatically treat the headaches with pain medications. However, it does not seem to be responding. We will recheck laboratories in the morning. cc: Brian Reilly MD
--- NOTE | 2018-04-25 15:34 | PROGRESS NOTE ---
DATE: 04/25/2018 SUBJECTIVE: The patient complains of a headache. OBJECTIVE: Vital Signs: Temperature 98, blood pressure 88/55, heart rate 95, respirations 17. O2 sats 93% on 3 L nasal cannula. Urine output 2 L. General: This is a chronically ill- appearing elderly male lying in bed in no acute distress. Heart: S1, S2 normal. Lungs: Equal air entry bilaterally. No wheezing. No rales. Abdomen: Positive bowel sounds. Soft, nontender, nondistended. Extremities: No edema, no cyanosis. Neurologic: The patient is alert and oriented x 3. LABS: White blood cell count 6.8, hemoglobin 10, hematocrit 34, platelets 158,000. Sodium 132, potassium 3.9, chloride 92, CO2 30, BUN 18, creatinine 1.2, glucose 92. ASSESSMENT AND PLAN: 1. Acute on chronic systolic CHF. Improved. Management as per the spotter driver. 2. Acute kidney injury. Resolved. 3. Headache. The patient has sinusitis that is showing up on the head CT. We will start antibiotic therapy. 4. COPD. Continue with bronchodilator therapy. 5. Ischemic cardiomyopathy. Aware. 6. Atrial fibrillation. Rate controlled. Continue on Coreg and Eliquis. 7. Hyponatremia. The patient has been dosed with Samsca by the spotter driver. cc: Michelle Velasquez MD
[2018-04-25] MEDS: DILAUDID IV PRN ×2 (16:32→20:31)
--- NOTE | 2018-04-25 18:44 | NEPHROLOGY PROGRESS NOTE ---
DATE: 04/25/2018 TIME SEEN: 724 SUBJECTIVE: Mr. Figueredo is sitting up in bed states that he has a little bit of a headache. He had a scan done yesterday indicating that he has sinusitis. Otherwise, he states that his breathing has improved. OBJECTIVE: Most recent vital signs: Temperature 97.8 degrees, blood pressure 90/72, heart rate 81, respirations are 19. He is on 3 L nasal cannula, last recorded saturation 97%. He has had 938 in, 2100 out to void. Laboratory Data: Sodium 132, potassium 3.9, chloride 92, CO2 30, BUN 18, creatinine 1.2, glucose 92, anion gap is 10, calcium is 8, magnesium 2.5. White count 6.8, hemoglobin 10.6, hematocrit 34.3 with a platelet count of 158,000. BNP earlier this a.m. 4834. Physical Examination: General: This is a 53-year-old white male resting quietly in bed. No acute distress. Skin: Warm and dry. HEENT: Normocephalic, atraumatic. Conjunctivae are pale pink. He has PERRL. Mucous membranes are dry. Neck: Supple, trachea midline. The patient does have trace JVD today. Cardiovascular: Irregular irregular rate and rhythm. No appreciable murmur or gallop. Lungs: Clear to auscultation bilaterally, equal excursion on room air. Abdomen: Soft, nontender. Positive bowel sounds. Genitourinary: Not inspected. Patient has adequate urine out recorded. Extremities: Have trace pretibial edema. No clubbing or cyanosis. Integumentary: Patient does have some erythematous areas to his lower extremities, though these continue to improve over the last 24 to 48 hours. Neurological: Alert and oriented x3. ASSESSMENT: 1. Acute kidney injury on chronic kidney disease stage 2. The patient has returned to his historical baseline of 1.1. He is at 1.2 today. BUN remains stable in spite of having continued Lasix. 2. Fluid volume overload with congestive heart failure. He does remain on Lasix b.i.d. More than likely this is secondary to his cardiac issues. 3. Electrolytes, acid-base balance and anemia. These are all acceptable. PLAN: We will sign off at this time. His fluid volume does appear to be more cardiac related than renal. We will remain available if indicated. I would like to thank you for allowing us to follow with this patient. Dictated by KRISH Olvera for Erasto Hi MD Face to face encounter, data reviewed, discussed with Joelle Woo on 04/25/18. I agree with the above assessment and plan of care. cc: KRISH Olvera MD [facility]
[2018-04-26] MEDS: DILAUDID IV PRN ×5 (00:58→20:10)
[2018-04-26] MEDS: ZOFRAN IV PRN ×3 (00:58→16:00)
[2018-04-26] MEDS: LASIX IV SCH ×2 (05:08→17:48)
[2018-04-26 05:49] LABS: CALCIUM 9.2 mg/dL (8.8-10.2); CREATININE 1.3 mg/dL (0.7-1.2); MAGNESIUM 2.8 mg/dL (1.5-2.7); POTASSIUM 4.5 mmol/L (3.5-5.1)
[2018-04-26] MEDS: ADVAIR 250/50 DISKUS INH SCH ×2 (07:54→20:20)
[2018-04-26] MEDS ORDERED: PHENERGAN IV PRN (08:00)
[2018-04-26] MEDS ORDERED: SODIUM CHLORIDE 0.9% INJ SCH (08:15)
[2018-04-26 08:17] LABS: HEMATOCRIT 38.3 % (42.0-52.0); HEMOGLOBIN 11.8 g/dL (14.0-18.0); MCH 26.7 PG (27-31); MCHC 30.8 g/dL (33-37); MCV 86.7 FL (81-99); MPV 10.8 FL (7.4-10.4); RBC 4.42 XMIL (4.7-6.1); RDW 21.3 % (11.5-14.5); WBC 9.4 X1000 (4.8-10.8)
[2018-04-26] MEDS ORDERED: PROTONIX IV SCH (09:00)
[2018-04-26] MEDS: PHENERGAN IV PRN ×2 (09:04→20:09)
[2018-04-26] MEDS: SODIUM CHLORIDE 0.9% INJ PRN ×2 (09:04→20:10)
--- NOTE | 2018-04-26 09:20 | Diag Imaging Result Doc PS360 ---
CT ABDOMEN/PELVIS W/O CONTRAST - 04/26/2018 INDICATION: abdominal pain/nausea COMPARISON: None FINDINGS: There is severe cardiomegaly. There are small bilateral pleural effusions. There is ill-defined interstitial infiltrate in the lung bases compatible with pulmonary edema. There is trace ascites. The gallbladder is filled with uniformly hyperdense fluid which may be excreted contrast from prior administration. There is marked vascular disease of the distal abdominal aorta with severe stenosis in the infrarenal aorta. Both common iliac arteries are essentially completely occluded with calcified plaque. This involves the external and internal iliac arteries as well. There is a small nonobstructing 2 mm left renal stone. No hydronephrosis or hydroureter. No bowel obstruction or inflammation. Urinary bladder, prostate, and rectum are normal. There are moderate degenerative changes of the spine. No acute or suspicious bony lesion. IMPRESSION: 1. Congestive heart failure. 2. Marked vasculopathy with critical stenosis of the abdominal aorta and essentially complete occlusion of both iliac artery systems. 3. Radiodense fluid in the gallbladder presumably contrast from a previous administration. This exam was performed using automated exposure control, adjustment of mA or kV according to patient size, and/or use of iterative reconstruction technique Electronically signed by Home Ramirez 04/26/2018 9:18 AM
[2018-04-26] MEDS: MIRALAX PO SCH (10:43)
[2018-04-26] MEDS: COLACE PO SCH ×2 (10:43→21:18)
[2018-04-26] MEDS: ELIQUIS PO SCH ×2 (10:44→21:18)
[2018-04-26] MEDS: AUGMENTIN PO SCH ×2 (10:44→21:18)
[2018-04-26] MEDS: BIDEX PO SCH ×2 (10:44→21:18)
[2018-04-26] MEDS: CORDARONE PO SCH (10:44)
[2018-04-26] MEDS: PLAVIX PO SCH (10:44)
[2018-04-26] MEDS: TOPAMAX PO SCH (10:44)
[2018-04-26] MEDS: ALDACTONE PO SCH (10:45)
[2018-04-26] MEDS: COREG PO SCH ×2 (10:45→21:18)
[2018-04-26] MEDS: AQUAPHOR OINTMENT TOP SCH (10:47)
[2018-04-26] MEDS ORDERED: DOBUTAMINE 500/D5W 500 MG/250 ML IV.SOLN IV SCH (12:30)
[2018-04-26] MEDS: DOBUTAMINE 500/D5W 500 MG/250 ML IV.SOLN IV SCH (13:22)
--- NOTE | 2018-04-26 13:28 | CONSULTATION ---
DATE OF CONSULTATION: 04/26/2018 HISTORY: Mr. Figueredo is 53 years old, and I have been consulted because of headache. Mr. Figueredo reports having headaches occasionally through his adult life. Current headache is worse than usual. This is bilateral temporal and forehead throbbing, worse on the left. He has had a little bit of nausea. He reports vision seems a little more blurred than usual, but he does not report focal loss of visual field or diplopia. He reports innumerable head injuries through the course of his life, most recent about a week ago when he was knocked off a ladder accidentally and struck his head without altered consciousness. He has had head injury in the past with transient altered consciousness. He has never had diagnosed stroke or other neurologic event. He is not able to provide detailed history regarding previous headache location, character and frequency. He reports acetaminophen is occasionally effective for headache at home. He has a specific request today for Demerol and/or Dilaudid, and told me each of these bothers his stomach, particularly Demerol, but each of these provides dependable relief. He does not recall taking a triptan medicine. Chart shows he has had a few doses of acetaminophen in the last week, but nothing in the last 2-1/2 days. He has had butalbital/acetaminophen/caffeine once in the last few days. He has been receiving hydromorphone 1 mg as needed with 5 doses recorded in the last 18 hours. He has had tramadol 100 mg 3 doses charted 2 days ago and 1 dose yesterday. He does not recall having medication prescribed daily specifically for headache management. Here, topiramate 25 mg daily was started yesterday. He is not certain nitroglycerin dose has been followed by headache and he has not had nitroglycerin in the last several days. His caffeine intake is usually 2 cups of regular coffee and 1 cola daily with occasional tea. He believes he has not had as much caffeine since hospitalization, but does remember having a cup of coffee at least once each of the last few days. There is reported past history of hypertension, heart failure, atrial fibrillation, and COPD. He quit smoking cigarettes a month ago by his report to me. He stopped using ethanol to excess 15 years ago. He reports a history of illicit drug use, but nothing in recent years. He reports his sister has a problem with headache. He does not know of any other family history of headache. Workup here includes noncontrast CT showing nothing remarkable in the brain. There is congestion noted in several sinuses. Lab shows mild anemia, normal WBC, sodium improved to 135 today; nothing remarkable on the metabolic profile otherwise. He has been afebrile. Systolic blood pressures have registered 70s-110s over the last few days. PHYSICAL EXAMINATION: Mr. Figueredo was asleep as I entered the room. With minimal stimulation, he was awake, alert, and attentive. Speech is dysarthric, sometimes difficult to understand, but when I commented on that, he seemed to concentrate, and his speech was much more clear. Language function is intact on brief testing. I did not test his cognitive function. Head and neck are unremarkable. He has full visual haro tested monocularly and binocularly by confrontational finger counting. Extraocular movements are full. Facial motility is symmetric. Gag is intact. Tongue is midline. He can hear. Shoulder shrug is equal. Strength is normal in the arms and legs. He did well on [id number] testing bilaterally. Sensation is intact, including good pinprick appreciation over the feet. Reflexes are 1+ at the ankles and 2+ at the wrists symmetrically. Plantar response is flexor bilaterally. I did not test his gait. IMPRESSION: 1. Headache. Explanation is not certain. He has a past history of episodic headache, which is difficult to categorize based on his limited history, but with the reported family history, this is likely migraine. We might see migraine episode triggered by missing caffeine and by blood pressure elevation. Frequent analgesic use raises additional possibility that medication overuse/analgesic rebound might be contributing to headache. With negative exam, unremarkable brain imaging, and clinical course, I do not know of anything that needs to be done urgently. I have encouraged him to get a little bit more caffeine, to rest, and to be careful with his analgesics. We can titrate topiramate as tolerated. If that is not adequate, we might later try other medicine for daily use to prophylax migraine including divalproex or amitriptyline. I would continue keeping blood pressure under control as you are doing. 2. Scan findings. I do not have any specific comment on the sinus findings on imaging. If sinusitis is contributing to his headache, he may get better with decongestants and antibiotics and time. 3. Inconsistent speech intelligibility. I suspect this is related to hydromorphone dose. There was not a consistent dysarthria. Thanks for asking Neurology to see Mr. Figueredo. cc: MD YASMINE Lu III
[2018-04-26] MEDS ORDERED: PROTONIX PO ONE (15:06)
--- NOTE | 2018-04-26 17:42 | CARDIOLOGY PROGRESS NOTE ---
DATE: 04/26/2018 SUBJECTIVE: Mr. Figueredo's nausea is much better today. The Milrinone was stopped yesterday. OBJECTIVE: Vital Signs: The patient is afebrile. Heart rate is 94. His blood pressure is 107/89. His intake and output has tapered off over the last 24 hours. General: He is in no acute distress. Cardiovascular: He sounds to be in a regular rate and rhythm. He has no murmurs. No S3. He has cool bilateral lower extremities. No edema. His JVP continues to be elevated. Respiratory: His chest exam is clear to auscultation bilaterally. No increased work of breathing. Abdomen: Soft, nontender. PERTINENT DATA: His sodium is 135, potassium is 4.5, BUN 22, creatinine is 1.3, which is roughly stable from yesterday. His proBNP is up to 8317. ASSESSMENT: Mr. Figueredo is a 53-year-old gentleman with ischemic cardiomyopathy. PLAN: Patient seems to have clinically worsened since discontinuation of the Milrinone. This was discontinued secondary to severe vomiting. We will retry initiation of an inotrope in the form of dobutamine. I have discussed with the patient to some extent regarding his prognosis. Palliative care has been meeting with the patient. He certainly is refractory in his heart failure, and I am concerned that he may be somewhat inotrope dependent. cc: Brian Reilly MD
[2018-04-26] MEDS: PROTONIX IV SCH (17:48)
--- NOTE | 2018-04-26 18:26 | PROGRESS NOTE ---
DATE: 04/26/2018 SUBJECTIVE: The patient continues to complain of a persistent headache. He has received Topamax and Fioricet which are not relieving the pain. OBJECTIVE: Vital Signs: Temperature 98.6 degrees, blood pressure 107/89, heart rate 94, respirations 14, O2 saturations 100% on 3 L nasal cannula. General: This is an elderly male lying in bed in no acute distress. Heart: S1, S2 normal. Tachycardic. Lungs: Clear to auscultation bilaterally. No wheezing. No rales. No rhonchi. Abdomen: Positive bowel sounds. Soft, nontender, nondistended. Extremities: No edema, no cyanosis. Neurologic: The patient is alert and oriented x3. LABS: White blood cell count 9.4, hemoglobin 11, hematocrit 38, platelets 204,000. Sodium 135, potassium 4.5, chloride 93, CO2 26, BUN 22, creatinine 1.3, glucose 109, proBNP 8317. ASSESSMENT AND PLAN: 1. Acute on chronic systolic congestive heart failure, improved. Continue on Lasix. The patient has been started on Dobutamine today. 2. Paroxysmal atrial fibrillation. Continue on Coreg and Eliquis. 3. Abdominal pain with nausea. Improved. The patient has been seen by GI. Continue on Protonix. 4. Migraine headaches. Continue on Topamax. The patient has been seen by Neurology as well. We will continue to monitor the patient closely for improvement. 5. Sinusitis. Continue on Augmentin. 6. Severe peripheral arterial disease. The patient had a CT of the abdomen and pelvis done today that revealed critical stenosis of the abdominal aorta and complete occlusion of both iliac artery systems. We will consult with General Surgery for further recommendations. 7. Deep vein thrombosis prophylaxis. The patient is currently on Eliquis. cc: Michelle Velasquez MD [facility]
[2018-04-26] MEDS: DUONEB (A & A) INH PRN (20:19)
--- NOTE | 2018-04-26 20:51 | GASTROENTEROLOGY CONSULTATION ---
DATE: 04/26/2018 REASON FOR CONSULTATION: Abdominal pain. HISTORY OF PRESENT ILLNESS: Mr. Neville Figueredo is a 53-year-old gentleman with past medical history significant for atrial fibrillation, congestive heart failure, COPD, recurrent pneumonia, anxiety, CKD stage 2, hypertension, chronic headaches who was admitted on 04/20/2018 for CHF exacerbation. The patient reports having violent coughing for the last 2 weeks that he attributes to his CHF. He also reports since having his cough he has developed lower abdominal pain in the right and left lower quadrants that is worse with cough. He does not notice any relation to bowel habits or eating. He does report a decreased appetite overall. No diarrhea, constipation, rectal bleeding, hematochezia or abnormal weight loss. He has been seen by Neurology for headaches. He has never had an EGD or a colonoscopy in the past. PAST MEDICAL HISTORY: CHF, hypertension, atrial fibrillation, coronary artery disease, status post stents, CKD stage 2, chronic headaches. PAST SURGICAL HISTORY: Hiatal hernia repair x2. FAMILY HISTORY: No family history of GI malignancies. SOCIAL HISTORY: He is a prior smoker. He quit drinking alcohol about a year ago. No drug use. MEDICATIONS: Lisinopril, nitroglycerin, spironolactone, aspirin 81 mg, amiodarone, Lasix, Eliquis, Plavix, Coreg, pantoprazole. ALLERGIES: To codeine. REVIEW OF SYSTEMS: As per HPI, otherwise 12-point review of systems is negative. PHYSICAL EXAMINATION: Vital signs: Temperature 98.5 degrees, pulse 94, respiratory rate 14, blood pressure 107/89, O2 saturation 100% on 3 L of oxygen. General: The patient is awake, alert, oriented, in no acute distress. Disheveled. HEENT: Sclerae anicteric. Moist mucous membranes. Neck: Supple. No JVD or lymphadenopathy. Cardiac: Regular rate and rhythm. No murmurs, rubs, or gallops. Lungs: Decreased breath sounds at the bases, otherwise clear. Abdomen: Nondistended, soft, tender to palpation on the lower abdomen bilaterally. No appreciable ascites. No upper abdominal pain on palpation. Positive Carnett sign. Extremities: No clubbing or cyanosis, 1 to 2+ edema. Neurologic: Nonfocal. LABORATORY DATA: White count of 9.4, hemoglobin of 11.8, platelets of 204,000. Sodium 134, potassium 4.5, chloride 93, bicarb 26, BUN 22, creatinine 1.3, ProBNP of 8317. UA was negative on 04/22/2018. Renal ultrasound on 04/23/2018 showed incidental ascites, unremarkable otherwise. CT abdomen and pelvis on 04/26/2018 showed findings consistent with congestive heart failure. Marked vasculopathy with critical stenosis of the abdominal aorta and essentially complete occlusion of both iliac artery systems. Radiodense fluid in the gallbladder, presumably contrast from a previous administration. ASSESSMENT AND PLAN: Mr. Neville Figueredo is a 53-year-old gentleman with a history of hypertension, hyperlipidemia, coronary artery disease status post stents in the past, congestive heart failure who presented with acute congestive heart failure exacerbation. GI was consulted for lower abdominal pain that is worse with coughing that the patient attributes to soreness from recurrent coughing. He does have a positive Carnett sign, which would support abdominal wall pain. CT of the abdomen and pelvis is unremarkable for acute pathology. He does have severe peripheral vascular disease although he does not have exam or history consistent with chronic mesenteric ischemia. He denies any change in his symptoms with eating. No nausea or vomiting, rectal bleeding, or melena. He does have some mild anemia, and patient at this time is not currently interested in diagnostic colonoscopy or endoscopy. # Abdominal pain. I suspect this is musculoskeletal in etiology - I recommend continuing supportive care, analgesics with Tylenol if possible and avoiding NSAIDs. # Congestive heart failure exacerbation: on diuretics as per primary team. # Coronary artery disease/PAD: He is currently on Eliquis and Plavix # HTN: blood pressure is controlled with meds. # Acute kidney injury resolved. # Headache. The patient is being treated for sinusitis. # Chronic obstructive pulmonary disease on bronchodilators. # Ischemic cardiomyopathy. Defer management to Cardiology. # Hyponatremia. The patient is on tolvaptan. We will sign off. Please call with any questions or concerns. Thank you for this consult. YASMINE
--- NOTE | 2018-04-26 22:19 | GENERAL SURGERY CONSULTATION ---
DATE: 04/26/2018 HISTORY OF PRESENT ILLNESS: This is a 53-year-old gentleman with history of cardiomyopathy, ischemic and peripheral vascular disease. He has been in the hospital for some time. He had a CT scan obtained for abdominal pain that showed aortic stenosis with changes consistent with congestive heart failure. He stated for a long time he has had short distance claudication from his gluteal muscles all the way down but denies any wounds. He has had no vascular procedures. He is currently on a dobutamine drip in our cardiac step-down unit. REVIEW OF SYSTEMS: Ten-point negative. MEDICAL HISTORY: 1. Cardiomyopathy, ischemic. 2. Atrial fibrillation. 3. COPD. 4. History of respiratory failure. 5. Congestive heart failure. 6. Anxiety. SURGICAL HISTORY: Denies any vascular procedures. SOCIAL HISTORY: He smokes a pack a day. Drinks alcohol regularly. Has been incarcerated in the past. FAMILY HISTORY: Reviewed and noncontributory. REVIEW OF SYSTEMS: Ten-point negative. PHYSICAL EXAMINATION: Vital signs: Temperature is 97.8 degrees, pulse 81, blood pressure 101/68, oxygen saturation 100 percent on 3 L. General: He is somewhat excitable but no acute distress. HEENT: No scleral icterus. No cervical mass. Cardiovascular: Normal rate and regular rhythm. He is on dobutamine drip. Pulmonary: No increased work of breathing. Abdomen: Soft. There is no pulsatile masses. Integumentary: Warm and dry. Psychiatric: Appropriate affect. Neurologic: Somewhat hyperactive. Lymphatic: No cervical, axillary or inguinal adenopathy. Peripheral vascular: Chronic ischemic changes of bilateral lower extremities but adequately perfused with no tissue loss. His popliteal, femoral and pedal pulses are not easily palpable. LABORATORY DATA: White count is 9, hematocrit is 38, creatinine is 1.3. ProBNP is 8317. IMAGING: I reviewed the CT scan obtained on 04/26/2018. ASSESSMENT AND PLAN: This is a 53-year-old gentleman with end stages of his cardiomyopathy. He is a DNR. He also has critical aortic stenosis and short distance claudication. He would be incredibly high risk for aortobifemoral bypass, which is what he would require to treat this. I would advise against as he is currently on inotropics support. We will follow along but doubtful he will progress toward surgical or vascular intervention. cc: Hawa Ryan MD
[2018-04-27] MEDS: ZOFRAN IV PRN ×3 (01:13→13:32)
[2018-04-27] MEDS: DILAUDID IV PRN ×3 (01:14→13:32)
[2018-04-27 06:10] LABS: HEMATOCRIT 35.9 % (42.0-52.0); HEMOGLOBIN 11.4 g/dL (14.0-18.0); MCH 27.4 PG (27-31); MCHC 31.8 g/dL (33-37); MCV 86.3 FL (81-99); MPV 10.7 FL (7.4-10.4); RBC 4.16 XMIL (4.7-6.1); RDW 21.6 % (11.5-14.5); WBC 6.5 X1000 (4.8-10.8)
[2018-04-27 06:30] LABS: CALCIUM 8.9 mg/dL (8.8-10.2); CREATININE 1.4 mg/dL (0.7-1.2); POTASSIUM 3.7 mmol/L (3.5-5.1)
[2018-04-27 06:54] LABS: MAGNESIUM 2.6 mg/dL (1.5-2.7); PHOSPHORUS 2.6 mg/dL (2.7-4.5)
[2018-04-27] MEDS: SODIUM CHLORIDE 0.9% INJ SCH (07:40)
[2018-04-27] MEDS: LASIX IV SCH ×2 (07:40→20:48)
[2018-04-27] MEDS: PROTONIX IV SCH ×2 (07:40→20:48)
[2018-04-27] MEDS: BIDEX PO SCH ×3 (07:44→20:49)
[2018-04-27] MEDS: AQUAPHOR OINTMENT TOP SCH ×2 (07:44→08:32)
[2018-04-27] MEDS: COREG PO SCH ×3 (07:44→20:50)
[2018-04-27] MEDS: AUGMENTIN PO SCH ×3 (07:44→20:51)
[2018-04-27] MEDS: PLAVIX PO SCH ×2 (07:45→08:33)
[2018-04-27] MEDS: ELIQUIS PO SCH ×3 (07:45→20:50)
[2018-04-27] MEDS: CORDARONE PO SCH ×2 (07:45→08:33)
[2018-04-27] MEDS: ALDACTONE PO SCH ×2 (07:45→08:32)
[2018-04-27] MEDS: TOPAMAX PO SCH ×2 (07:45→08:33)
[2018-04-27] MEDS: ADVAIR 250/50 DISKUS INH SCH ×2 (07:57→21:04)
[2018-04-27] MEDS: DUONEB (A & A) INH PRN (07:57)
[2018-04-27] MEDS: MIRALAX PO SCH (08:33)
[2018-04-27] MEDS: COLACE PO SCH ×3 (08:33→20:50)
[2018-04-27] MEDS: DOBUTAMINE 500/D5W 500 MG/250 ML IV.SOLN IV SCH (11:38)
--- NOTE | 2018-04-27 18:27 | GENERAL SURGERY PROGRESS NOTE ---
DATE: 04/27/2018 SUBJECTIVE: Remains on dobutamine drip. No leg pain. OBJECTIVE: His feet are warm. No fevers. Pulse of 90s, blood pressure 102/70. In general, he is alert. Abdomen is soft. Cardiovascular: Normal rate. Feet have chronic ischemic changes but they are adequately perfused at rest. LABORATORY DATA: White count 6, hematocrit 35. ASSESSMENT AND PLAN: A 53-year-old gentleman with cardiomyopathy and aortic stenosis. Very high risk for an abdominal operation, and he would require a bifemoral bypass. We will monitor him closely while here, but no plans for emergent surgical intervention. cc: Hawa Ryan MD
--- NOTE | 2018-04-27 20:08 | PROGRESS NOTE ---
DATE: 04/27/2018 SUBJECTIVE: The patient is sitting at the edge of the bed. He states that he still has a little bit of a headache. OBJECTIVE: Vital Signs: Temperature 96.5 degrees, blood pressure 99/77, heart rate 94 , respirations 17, O2 saturations 90% on 3 L nasal cannula. General: This is an elderly male lying in bed in no acute distress. Heart: S1, S2 normal. Regular rate and rhythm. Lungs: Diminished breath sounds at the bases, no wheezing. Abdomen: Positive bowel sounds. Soft, nontender, nondistended. Extremities: No edema, no cyanosis. Neuro: The patient is alert and oriented x4. LABS: White blood cell count 6.5, hemoglobin 11, hematocrit 35, platelets 158,000, sodium 137, potassium 3.7, chloride 93, CO2 32, BUN 24, creatinine 1.4, glucose 135, phosphorus 2.6. ASSESSMENT AND PLAN: 1. Acute on chronic systolic congestive heart failure. The patient remains on a dobutamine drip. Further management as per the supervisor/port director. 2. Paroxysmal atrial fibrillation. Continue on Coreg and Eliquis. 3. Severe peripheral arterial disease with critical stenosis of the abdominal aorta. Aware. The patient is not a surgical candidate. 4. Sinusitis. Continue on Augmentin. 5. Migraine headaches. Continue on Topamax and p.r.n. Fioricet. 6. Abdominal pain. Patient has not had a bowel movement today. Continue with Maalox, Colace. 7. Acute kidney injury. The creatinine is slowly rising again. Likely secondary to the diuretic therapy. Will continue to monitor the patient closely while receiving diuretic therapy. 8. Deep vein thrombosis prophylaxis. The patient is on Eliquis. cc: Michelle Velasquez MD [facility]
[2018-04-27] MEDS: PHENERGAN IV PRN (20:48)
[2018-04-27] MEDS: ULTRAM PO PRN (20:49)
[2018-04-28 05:59] LABS: HEMATOCRIT 35.9 % (42.0-52.0); HEMOGLOBIN 11.2 g/dL (14.0-18.0); MCH 27.3 PG (27-31); MCHC 31.2 g/dL (33-37); MCV 87.3 FL (81-99); MPV 10.4 FL (7.4-10.4); RBC 4.11 XMIL (4.7-6.1); RDW 21.8 % (11.5-14.5); WBC 5.78 X1000 (4.8-10.8)
[2018-04-28 06:25] LABS: ALBUMIN 3.5 g/dL (3.5-5.0); CALCIUM 8.2 mg/dL (8.8-10.2); CREATININE 1.5 mg/dL (0.7-1.2); MAGNESIUM 2.3 mg/dL (1.5-2.7); PHOSPHORUS 2.1 mg/dL (2.7-4.5); POTASSIUM 3.3 mmol/L (3.5-5.1)
[2018-04-28] MEDS ORDERED: POTASSIUM PHOSPHATE 30 MMOL in NS 250 ML IV ONE (07:18)
--- NOTE | 2018-04-28 07:26 | Diag Imaging Result Doc PS360 ---
EXAM: CHEST-PORTABLE 04/28/2018 HISTORY: dyspnea TECHNIQUE: AP portable at 0629 COMMENT: There is cardiomegaly. There is hazy opacity throughout both lungs with denser opacification in the left lower lobe. This has improved slightly since the previous study of 04/23/2018. IMPRESSION: Pulmonary edema and cardiomegaly. Improved atelectasis or pneumonia left lower lobe. Electronically signed by Navarro Ledbetter 04/28/2018 7:23 AM
[2018-04-28] MEDS: ADVAIR 250/50 DISKUS INH SCH ×2 (07:52→19:25)
[2018-04-28] MEDS: CORDARONE PO SCH (08:48)
[2018-04-28] MEDS: TOPAMAX PO SCH (08:48)
[2018-04-28] MEDS: PROTONIX IV SCH ×2 (08:48→21:26)
[2018-04-28] MEDS: PLAVIX PO SCH (08:48)
[2018-04-28] MEDS: SODIUM CHLORIDE 0.9% INJ SCH (08:48)
[2018-04-28] MEDS: ELIQUIS PO SCH ×2 (08:48→21:25)
[2018-04-28] MEDS: MIRALAX PO SCH (08:49)
[2018-04-28] MEDS: ALDACTONE PO SCH (08:49)
[2018-04-28] MEDS: BIDEX PO SCH ×2 (08:49→21:25)
[2018-04-28] MEDS: LASIX IV SCH ×2 (08:49→21:24)
[2018-04-28] MEDS: COREG PO SCH ×2 (08:49→21:25)
[2018-04-28] MEDS: COLACE PO SCH ×2 (08:50→21:25)
[2018-04-28] MEDS: AQUAPHOR OINTMENT TOP SCH (08:50)
[2018-04-28] MEDS: AUGMENTIN PO SCH ×2 (09:41→21:26)
[2018-04-28] MEDS: DOBUTAMINE 500/D5W 500 MG/250 ML IV.SOLN IV SCH (12:36)
--- NOTE | 2018-04-28 19:10 | PROGRESS NOTE ---
DATE: 04/28/2018 SUBJECTIVE: The patient states that he no longer has a headache. He does have a rash on his arms and chest. OBJECTIVE: Vital Signs: Temperature 96.1 degrees, blood pressure 94/70, heart rate 97, respirations 17, O2 saturations 98% on 3 L nasal cannula. General: This is an elderly male lying in bed in no acute distress. Heart: S1, S2 normal. Regular rate and rhythm. Lungs: Equal air entry bilaterally. No crackles, no rales. Abdomen: Positive bowel sounds. Soft, nontender, nondistended. Extremities: No edema, no cyanosis. Neuro: The patient is alert and oriented x3. LABS: Sodium 136, potassium 3.3, chloride 95, CO2 30, BUN 21, creatinine 1.5, phosphorus 2.1. ASSESSMENT AND PLAN: 1. Acute on chronic systolic congestive heart failure exacerbation. Management as per the director of agriculture. 2. Sinusitis. Continue on Augmentin. 3. Headache. Improved. Continue on Topamax and p.r.n. Fioricet. 4. Severe peripheral arterial disease with critical stenosis of the abdominal aorta. Aware. 5. Paroxysmal atrial fibrillation. Continue on Coreg and Eliquis. 6. Acute kidney injury. Continue to monitor closely while the patient is receiving diuretic therapy. 7. Hypophosphatemia. Will replace the phosphorus. 8. Hypokalemia. Will replace the potassium. cc: Michelle Velasquez MD [facility]
[2018-04-28] MEDS: DILAUDID IV PRN (21:24)
[2018-04-28] MEDS: PHENERGAN IV PRN (21:24)
[2018-04-29 05:47] LABS: HEMATOCRIT 35.5 % (42.0-52.0); HEMOGLOBIN 11.1 g/dL (14.0-18.0); MCH 27.1 PG (27-31); MCHC 31.3 g/dL (33-37); MCV 86.6 FL (81-99); MPV 10.3 FL (7.4-10.4); RBC 4.1 XMIL (4.7-6.1); RDW 21.5 % (11.5-14.5); WBC 6.69 X1000 (4.8-10.8)
[2018-04-29 06:22] LABS: ALBUMIN 3.6 g/dL (3.5-5.0); CALCIUM 8.6 mg/dL (8.8-10.2); CREATININE 1.6 mg/dL (0.7-1.2); MAGNESIUM 2.1 mg/dL (1.5-2.7); PHOSPHORUS 2.9 mg/dL (2.7-4.5); POTASSIUM 3.4 mmol/L (3.5-5.1)
[2018-04-29] MEDS ORDERED: KLOR-CON PO ONE (08:00)
[2018-04-29] MEDS: MIRALAX PO SCH (08:19)
[2018-04-29] MEDS: AUGMENTIN PO SCH ×2 (08:20→20:55)
[2018-04-29] MEDS: BIDEX PO SCH ×2 (08:20→20:56)
[2018-04-29] MEDS: PLAVIX PO SCH (08:20)
[2018-04-29] MEDS: CORDARONE PO SCH (08:21)
[2018-04-29] MEDS: ALDACTONE PO SCH (08:21)
[2018-04-29] MEDS: COREG PO SCH ×2 (08:21→20:55)
[2018-04-29] MEDS: COLACE PO SCH ×2 (08:21→20:56)
[2018-04-29] MEDS: TOPAMAX PO SCH (08:21)
[2018-04-29] MEDS: PROTONIX IV SCH ×2 (08:21→20:56)
[2018-04-29] MEDS: ELIQUIS PO SCH ×2 (08:21→20:55)
[2018-04-29] MEDS: SODIUM CHLORIDE 0.9% INJ SCH (08:22)
[2018-04-29] MEDS: DUONEB (A & A) INH PRN ×2 (08:36→12:11)
[2018-04-29] MEDS: ADVAIR 250/50 DISKUS INH SCH ×2 (08:36→21:59)
[2018-04-29] MEDS: AQUAPHOR OINTMENT TOP SCH (08:44)
--- NOTE | 2018-04-29 14:34 | CARDIOLOGY PROGRESS NOTE ---
DATE: 04/29/2018 SUBJECTIVE: Mr. Figueredo seems quite frustrated. He is tired of being in the hospital. He reports his breathing is doing better. He is not hurting. PHYSICAL EXAMINATION: Vital signs: He is afebrile. Heart rate is 73, blood pressure 78/57. His I's and O's have been quite negative over the last 24 to 48 hours. For the course of the hospitalization he is negative 16 L . General: No acute distress. Neck: His JVP continues to appear slightly elevated. Chest: Sounds to have mild basilar rales. No increased work of breathing. Cardiovascular: He is in a regular rate and rhythm. He has no murmurs. Extremities: He has no lower extremity edema. He has warm and well perfused extremities. Abdomen: Soft, nontender. PERTINENT DATA: His sodium is 6.7, his hematocrit is 35, his platelet count is 151,000, his sodium is 138, potassium 3.4, his BUN is 19, creatinine is 1.6 which has been a trend up over the last few days. His proBNP is 93 49. ASSESSMENT: Mr. Figueredo is a 53-year-old gentleman with an ischemic cardiomyopathy. PLAN: He seems quite frustrated with his current care which is understandable. I have had discussions with him regarding his current clinical situation. He certainly seems to be in refractory heart failure. I will last Jennifer with the palliative care service come back and talk to him. He seems amenable to discussing a hospice type approach. His blood pressure is poorly tolerant to any sort of medications. For his heart failure he is on carvedilol at 6.25 b.i.d. cc: Brian Reilly MD
[2018-04-29] MEDS: DOBUTAMINE 500/D5W 500 MG/250 ML IV.SOLN IV SCH (14:46)
--- NOTE | 2018-04-29 16:55 | PROGRESS NOTE ---
DATE: 04/29/2018 Mr. Figueredo reports resolution of headaches. Chart shows systolic blood pressures 80s-130s. He told me he has reduced caffeine somewhat and seems to be doing well with that now. Topiramate dose is titrating. I do not have any new suggestion for headache management for Mr. Figueredo. I will be glad to see him as an outpatient to follow up on headache, if needed. Thanks for asking Neurology to see him. cc: Mason Ibarra III, MD
--- NOTE | 2018-04-29 18:56 | PROGRESS NOTE ---
DATE: 04/29/2018 SUBJECTIVE: The patient is resting comfortably in bed. He states that his headache is resolved and the rash on his arms is better. OBJECTIVE: Vital Signs: Temperature 97.5, blood pressure 88/37, heart rate 52, respirations 15. O2 sats 97% on 2 L nasal cannula. General: This is an elderly male lying in bed in no acute distress. Heart: S1, S2 normal. Lungs: Equal air entry bilaterally. No crackles. No rales. Abdomen: Positive bowel sounds. Soft, nontender, nondistended. Extremities: No edema, no cyanosis. Neurologic: The patient is alert and oriented x 4. LABS: White blood cell count 6.6, hemoglobin 11, hematocrit 35, platelets 151,000. Sodium 138, potassium 3.4, chloride 98, CO2 25, BUN 19, creatinine 1.6, glucose 146. ProBNP 9349. ASSESSMENT AND PLAN: 1. Acute on chronic systolic CHF. 2. Sinusitis. 3. Headache. 4. Severe peripheral arterial disease with critical stenosis of the abdominal aorta. 5. Paroxysmal atrial fibrillation. 6. Acute kidney injury. PLAN: The patient has decided that he no longer wants any further cardiac intervention. He wants to be discharged home with hospice services. Palliative care and Network Technical Analyst is working on making the arrangements. cc: Michelle Velasquez MD
[2018-04-30] MEDS: PHENERGAN IV PRN ×2 (00:29→21:33)
[2018-04-30 08:00] LABS: HEMATOCRIT 36.1 % (42.0-52.0); HEMOGLOBIN 11.5 g/dL (14.0-18.0); MCH 27.5 PG (27-31); MCHC 31.9 g/dL (33-37); MCV 86.4 FL (81-99); MPV 10.9 FL (7.4-10.4); RBC 4.18 XMIL (4.7-6.1); RDW 21.4 % (11.5-14.5); WBC 6.22 X1000 (4.8-10.8)
[2018-04-30 08:16] LABS: ALBUMIN 3.5 g/dL (3.5-5.0); CALCIUM 8.5 mg/dL (8.8-10.2); CREATININE 1.4 mg/dL (0.7-1.2); MAGNESIUM 2.1 mg/dL (1.5-2.7); PHOSPHORUS 2.9 mg/dL (2.7-4.5); POTASSIUM 3.9 mmol/L (3.5-5.1)
[2018-04-30] MEDS: PROTONIX IV SCH ×2 (09:54→21:45)
[2018-04-30] MEDS: SODIUM CHLORIDE 0.9% INJ SCH (09:54)
[2018-04-30] MEDS: BIDEX PO SCH ×2 (09:55→21:50)
[2018-04-30] MEDS: ALDACTONE PO SCH (09:55)
[2018-04-30] MEDS: PLAVIX PO SCH (09:55)
[2018-04-30] MEDS: COLACE PO SCH ×2 (09:55→21:50)
[2018-04-30] MEDS: ELIQUIS PO SCH ×2 (09:55→21:49)
[2018-04-30] MEDS: CORDARONE PO SCH (09:56)
[2018-04-30] MEDS: TOPAMAX PO SCH (09:57)
[2018-04-30] MEDS: MIRALAX PO SCH (09:57)
[2018-04-30] MEDS: COREG PO SCH ×2 (09:58→21:50)
[2018-04-30] MEDS: AUGMENTIN PO SCH ×2 (09:58→21:50)
[2018-04-30] MEDS: DUONEB (A & A) INH PRN ×2 (11:49→15:44)
[2018-04-30] MEDS: ADVAIR 250/50 DISKUS INH SCH ×2 (11:53→19:50)
[2018-04-30] MEDS: AQUAPHOR OINTMENT TOP SCH (12:04)
[2018-04-30] MEDS: FIORICET PO PRN (17:34)
--- NOTE | 2018-04-30 17:47 | PROGRESS NOTE ---
DATE: 04/30/2018 SUBJECTIVE: The patient is resting comfortable in bed. OBJECTIVE: Vital Signs: As follows: Temperature is 4.6, pulse 96, respiratory rate is 12, blood pressure is 86/64, saturating 100%. HEENT: Atraumatic, normocephalic. Cardiovascular: S1, S2. Respiratory: Has evidence of good air entry bilaterally. Abdomen: Soft, nontender. No masses felt. Extremities: No evidence of edema. Central Nervous System: No obvious focal deficit noted. LABORATORY DATA: WBC 6.8, hematocrit is 36.4, with a platelet count of 168,000. Sodium 131, potassium 3.9, chloride is 94, bicarb is 22, BUN is 23, creatinine 1.4. ASSESSMENT AND PLAN: 1. Acute systolic congestive heart failure. 2. Peripheral arterial disease. 3. Acute kidney injury. 4. Paroxysmal atrial fibrillation. PLAN: We will continue current treatment regimen. The patient seemed to be inclined towards hospice care and the patient has been seen by both Palliative Care as well as Detective Homicide Squad. cc: Javier Jiménez MD
[2018-04-30] MEDS: AMBIEN PO PRN (21:50)
[2018-04-30] MEDS: ULTRAM PO PRN (21:51)
[2018-04-30] MEDS: ZOFRAN IV PRN (23:22)
[2018-05-01] MEDS: ADVAIR 250/50 DISKUS INH SCH (07:58)
[2018-05-01] MEDS: BIDEX PO SCH (09:44)
[2018-05-01] MEDS: COLACE PO SCH (09:46)
[2018-05-01] MEDS: ALDACTONE PO SCH (09:46)
[2018-05-01] MEDS: COREG PO SCH (09:46)
[2018-05-01] MEDS: MIRALAX PO SCH (09:47)
[2018-05-01] MEDS: AUGMENTIN PO SCH (09:47)
[2018-05-01] MEDS: ELIQUIS PO SCH (09:47)
[2018-05-01] MEDS: PLAVIX PO SCH (09:48)
[2018-05-01] MEDS: CORDARONE PO SCH (09:48)
[2018-05-01] MEDS: TOPAMAX PO SCH (09:49)
[2018-05-01] MEDS: PROTONIX IV SCH (11:09)
[2018-05-01] MEDS: AQUAPHOR OINTMENT TOP SCH (11:09)
--- NOTE | 2018-05-01 12:04 | PROGRESS NOTE ---
DATE: 05/01/2018 SUBJECTIVE: The patient is resting comfortably in bed. She is not in any obvious distress. OBJECTIVE: Vital Signs: Temperature 97.2 degrees, pulse 91, respirations 14, blood pressure 82/44, and oxygen saturation is 92%. HEENT: Atraumatic and normocephalic. Cardiovascular: S1, S2. Respiratory: Evidence of good air entry bilaterally. Abdomen: Soft, nontender. No masses felt. Extremities: Trace edema in the lower extremities. Central nervous system: No obvious focal deficits noted. LABORATORY: None. ASSESSMENT AND PLAN: 1. Congestive heart failure stable. 2. Acute kidney injury. 3. Peripheral arterial disease. 4. Paroxysmal atrial fibrillation. PLAN: The patient is ready for discharge. He does have some social issues with regards to placement at this time. Once that can be resolved, he will be discharged. Of note, the patient is inclined towards hospice care. cc: Javier Jiménez MD
[2018-05-01] MEDS ORDERED: PROAMATINE PO SCH (13:00)
[2018-05-01 16:24] VITALS: BP 94/66
== END 2018-05-01 17:32 | disposition left against medical advice (07) | DRG 291 ==
LOC: SUPCPDRO → ED 22:25 → SUATTDRO 04-20 02:56 → 3S 04-20 02:56 → 3N 04-29 23:04
PROVIDERS: ATTEND Internal Medicine
CPT/HCPCS: 70450; 71010; 71045; 74176; 76770; 80048; 80053; 80069; 81001; 82550; 82570; 82805; 82948; 83605; 83735; 83880; 83935; 84100; 84132; 84156; 84300; 84484; 84540; 85025; 85027; 87205; 87275; 87276; 87804; 93005; 93010; 94640; 94761; 96374; 96375; 99285; A9270; C9113; J0610; J1170; J1250; J1885; J1940; J2260; J2405; J2550; J2930; J7040; J7050; S0164; XXXXX

== ENCOUNTER 2018-05-06 02:40 | Inpatient (IN) ==
--- NOTE | 2018-05-06 02:50 | PROVIDER DOCUMENTATION ---
HPI-Respiratory General - General Stated Complaint: resp distress Time Seen by Provider: 05/06/18 02:49 Source: patient Allergies/Adverse Reactions: Patient Allergies Allergy/AdvReac Type Severity Reaction Status Date / Time codeine Allergy Severe ANAPHYLAXIS Verified 05/06/18 03:30 hydrocodone AdvReac Mild NAUSEA/VOMI Verified 05/06/18 03:30 TING Home Medications: Home Medication List Medication Instructions Recorded Confirmed Last Taken Type Lisinopril 2.5 mg PO DAILY 01/01/18 05/06/18 04/17/18 History Nitroglycerin Sl [Nitroglycerin] 0.4 mg PO PRN PRN 01/01/18 05/06/18 04/17/18 History Spironolactone 12.5 mg PO DAILY 01/01/18 05/06/18 04/17/18 History Aspirin 81 mg PO DAILY 01/14/18 05/06/18 04/17/18 History Amiodarone [Cordarone] 200 mg PO QAM #30 tablet 01/29/18 05/06/18 04/17/18 Rx Furosemide [Lasix] 80 mg PO DAILY #60 tablet 01/29/18 05/06/18 04/17/18 Rx Apixaban [Eliquis] 2.5 mg PO DAILY 04/09/18 05/06/18 04/17/18 History Carvedilol 6.25 mg PO BID 04/09/18 05/06/18 04/17/18 History Pantoprazole Sodium 40 mg PO DAILY 04/09/18 05/06/18 04/17/18 History Saline Nasal [place] [[place] Nasal 2 sprays KARY Q2-3H PRN PRN 04/09/18 05/06/18 04/17/18 History [place]] - History of Present Illness-Resp Nature of Presenting Problem: Presents to the with complaints of SOB. He states that he was just discharged from the hospital and he is dying. He states they have told him he is dying and he is ok with it. He was supposed to be transitioned to hospice but was unable to be accepted and so he was discharged. He states that his friends called EMS on him without him knowing. He wants nothing done for him except to help him . He does not want duonebs, bipap, intubation, ventilators or chest comp ression. He states he is ok with some lasix to help relieve some symptoms but otherwise just wants helps dying. Review of Systems - Adult - REVIEW OF SYSTEMS - ADULT ROS:: limited per condition (patient SOB, tachypneic and tearful) Constitutional: reports: no symptoms reported Respiratory: reports: shortness of breath Past History - Adult - PAST MEDICAL HISTORY-ADULT Review of Records: reports: Old Records Reviewed Major Childhood Illnesses: reports: denies history Cardiovascular: reports: A-Fib, CHF Respiratory: reports: asthma, COPD, pneumonia Gastrointestinal: reports: denies history Obstetrical/Gynecological: reports: denies history Genitourinary: reports: denies history Musculoskeletal: reports: denies history Neurological: reports: denies history Psychiatric: reports: anxiety Endocrine/Immune: reports: denies history Other Conditions: reports: denies history - PRIOR SURGERIES/PROCEDURES Surgical/Procedure History: reports: hernia repair, back/neck - IMMUNIZATION STATUS Childhood Immunizations: See Nurse Assessment Flu Vaccine: See Nurse Assessment - FAMILY HISTORY Family History: reviewed, not pertinent Physical Exam-General - PHYSICAL EXAM-ADULT Initial Vital Signs Reviewed: Yes - CONSTITUTIONAL General Appearance: mild distress (mild respiratory distress) - EYES Eyes: PERRL/EOMI - HEAD, EARS, NOSE, MOUTH & THROAT HENMT: normocephalic/atraumatic - NECK Neck: supple - RESPIRATORY Respiratory: respiratory distress, decreased breath sounds (worse on left but throughout all lung haro), crackles (at right base mostly) - CARDIOVASCULAR Cardiovascular: no murmur, tachycardia - GASTROINTESTINAL (ABDOMEN) Abdominal Exam: normal bowel sounds, soft, other (pitting edema up to umbilicus) - MUSCULOSKELETAL Back Exam: normal inspection Extremity: pedal edema - SKIN Integumentary: warm/dry - NEUROLOGIC Neurologic: grossly normal - PSYCHIATRIC Psych/Mental Status: normal mood/affect, normal thought content, normal thought process, oriented x 3 Progress - PLAN OF CARE/RESULTS Progress/Plan/Lab Results: Vital Signs - 8 hr 05/06/18 02:42 Temperature 98.5 F Pulse Rate 103 H Respiratory Rate 31 H Blood Pressure 110/94 O2 Sat by Pulse Oximetry 100 Orders Category Date Time Status Admit - [facility] Routine AdmDCTranf 05/06/18 03:36 Active Activity - Strict Bedrest ORDERED Care 05/06/18 03:36 Active Apply Mechanical Device [QM] ORDERED Care 05/06/18 03:36 Active Intake and Output-Strict ORDERED Care 05/06/18 03:36 Active Misc. NRSG Communication Order DIRECTED Care 05/06/18 03:35 Active Resuscitation Status Routine Care 05/06/18 03:02 Ordered Vital Signs Order Q 8-HR .ASSESS Care 05/06/18 03:36 Active Z-Document. for Tele Applied ORDERED Care 05/06/18 03:37 Active Hospice Care Consult [OM.CSS] Stat Cons 05/06/18 03:35 Active Albuterol 2.5MG/Ipratrop 0.5MG [Duoneb (A & A)] Med 05/06/18 03:36 Active 3 ml INH Q2H PRN PRN Amiodarone [Cordarone] Med 05/06/18 09:00 Ordered 200 mg PO QAM Apixaban [Eliquis] Med 05/06/18 09:00 Ordered 2.5 mg PO DAILY Aspirin Med 05/06/18 09:00 Active 81 mg PO DAILY Carvedilol [Coreg] Med 05/06/18 09:00 Ordered 6.25 mg PO BID Furosemide [Lasix] Med 05/06/18 03:06 Discontinued 60 mg IV NOW ONE Furosemide [Lasix] Med 05/06/18 09:00 Active 80 mg PO DAILY Lisinopril Med 05/06/18 09:00 Ordered 2.5 mg PO DAILY Lorazepam [Ativan] Med 05/06/18 03:35 Active 1 mg IV Q4H PRN PRN Morphine Med 05/06/18 04:00 Ordered 2 mg IV Q2HR Morphine Med 05/06/18 03:06 Discontinued 4 mg IV NOW ONE Nitroglycerin Sl [Nitroglycerin] Med 05/06/18 03:32 Active 0.4 mg SL PRN PRN Ondansetron [Zofran] Med 05/06/18 03:36 Active 4 mg IV Q4H PRN PRN Pantoprazole [Protonix] Med 05/06/18 09:00 Active 40 mg PO DAILY Saline Nasal [place] [[place] Nasal [place]] Med 05/06/18 03:32 Ordered DOSE ml KARY Q2-3H PRN PRN Spironolactone [Aldactone] Med 05/06/18 09:00 Ordered 12.5 mg PO DAILY Aerosol Treatments Routine Oth 05/06/18 03:37 Active Telemetry [OM.EQ] Routine Oth 05/06/18 03:36 Active Transfer/Admit Order [TRANSFER] Routine Transfer 05/06/18 03:38 Ordered Patient alert and oriented. He has good thought process and is able to make decisions. He wants no interventions. Given a dose of lasix and morphine for symptom control. Spoke to hospitalist Dr Hoffmann who accepted patient for admission. Patient asking for title search manager. scallop raker title search manager paged by nursing staff. Air Bag Curer came to visit patient in the ED. Departure - Departure Date of Disposition Decision: 05/06/18 Time of Disposition Decision: 03:40 DIAGNOSIS: Congestive heart failure, COPD (chronic obstructive pulmonary disease), Comfort measures only status Disposition: ADMITTED INPATIENT 09 Certified Medical Emergency: Emergent Condition: Critical - Critical Care Note This patient required my direct & personal management of CC.: No Attestation - Physician/ PREET Attestation Patient care was provided by Advanced Practice Provider:: No The physician spent face to face time with patient:: Yes Advanced Practice Provider documentation review:: Supervising physician onsite and consulted in the evaluation and care of this patient. The physician did have a face to face encounter with the patient.
[2018-05-06] MEDS ORDERED: LASIX IV ONE (03:06)
[2018-05-06] MEDS ORDERED: MORPHINE IV ONE (03:06)
[2018-05-06] MEDS ORDERED: AYR NASAL SPRAY NAS PRN (03:32)
[2018-05-06] MEDS ORDERED: NITROGLYCERIN SL PRN (03:32)
[2018-05-06] MEDS ORDERED: ZOFRAN IV PRN (03:36)
[2018-05-06] MEDS ORDERED: MORPHINE IV SCH (04:00)
--- NOTE | 2018-05-06 04:31 | HISTORY AND PHYSICAL ---
CHIEF COMPLAINT: Shortness of breath. HISTORY OF PRESENT ILLNESS: Briefly, this is a 53-year-old male with known congestive heart failure, atrial fibrillation, recurrent pneumonia and anxiety, who is medically noncompliant. He was recently in the hospital just a couple of days ago. He was supposed to go home with hospice and apparently that was never set up. He comes in tonight requesting only comfort measures and to be a Do Not Resuscitate level 1 and to speak to the memorial adviser. He will be placed in observation status for further evaluation and treatment. PAST MEDICAL HISTORY: See HPI. PREVIOUS SURGICAL HISTORY: Hernia repair, back surgery. SOCIAL HISTORY: Smokes a pack a day. No alcohol. Does have a history of alcohol abuse. No illicit drugs. FAMILY HISTORY: Positive for hypertension. ALLERGIES: Codeine causing anaphylaxis, hydrocodone causing nausea and vomiting. HOME MEDICATIONS: 1. Amiodarone 200 mg p.o. daily. 2. Eliquis 2.5 mg p.o. daily. 3. Aspirin 81 mg p.o. daily. 4. Carvedilol 6.25 mg p.o. b.i.d. 5. Lasix 80 mg p.o. daily. 6. Lisinopril 2.5 mg p.o. daily. 7. Nitroglycerin 0.4 sublingual p.r.n. 8. Protonix 40 mg p.o. daily. 9. Spironolactone 12.5 mg p.o. daily. REVIEW OF SYSTEMS: Fourteen point review of systems conducted with the patient. Pertinent positives include increased shortness of breath, dyspnea on exertion, occasional chest pain, increased swelling in the lower extremities. All other systems were reviewed and negative. PHYSICAL EXAMINATION: VITAL SIGNS: Temperature 98.5, pulse 103, respirations 30, blood pressure 110/94, oxygen saturation 100% on 4 L nasal cannula. GENERAL: A 53-year-old male lying in the ER stretcher in moderate respiratory distress, answers all questions appropriately, does not wish to have labs or imaging, wishes only for comfort care and to see a memorial adviser. HEENT: Head is atraumatic, normocephalic. Pupils equal, round, reactive to light. Extraocular eye movements intact. Sclerae are anicteric. Conjunctiva is pink. Oral mucosa is moist. NECK: Supple. JVD noted. Trachea is midline. No cervical lymphadenopathy. CARDIAC: S1, S2 appreciated. Irregularly irregular. No murmurs, gallops, rubs. LUNGS: Decreased bilaterally. Crepitations noted in bilateral bases, expiratory wheezing. No rhonchi. Symmetric rise and fall with respirations. ABDOMEN: Soft, nondistended, nontender. Bowel sounds present all 4 quadrants, normoactive. No pulsatile mass. No organomegaly. EXTREMITIES: No clubbing, cyanosis. Two-plus pitting edema bilateral lower extremities. One- plus pedal pulses bilaterally. SKIN: Warm, dry, intact. No acute lesions or rash. NEUROLOGICAL: Mildly lethargic related to receiving morphine prior to examination. Alert and oriented times 3. No focal motor deficit. Otherwise nonfocal examination. DIAGNOSTIC DATA: Deferred by patient. ASSESSMENT: 1. Congestive heart failure with exacerbation. 2. Acute on chronic respiratory failure. 3. Chronic obstructive pulmonary disease with exacerbation. 4. Atrial fibrillation. PLAN: Patient requests to be comfort measures only, Do Not Resuscitate level 1 and speak to the memorial adviser. He was given Lasix in the emergency room. We will continue his home medication. Add morphine and Ativan as needed for comfort. We will continue to monitor. We will also consult Hospice to see the patient. Further recommendations per patient clinical course. Dictated by KRISH Mckeon for Luc Hoffmann MD I have performed a face to face diagnostic evaluation. Labs/ Xrays- reviewed. Chest- Bibasilar rales, CV- irreg. A/P- CHF exac- Admit, gentle diuresis, patient wants comfort measures/ hospice. Dr. Hoffmann cc: KRISH Mckeon MD [facility]
[2018-05-06] MEDS: ATIVAN IV PRN ×3 (06:09→23:58)
[2018-05-06] MEDS: MORPHINE IV PRN ×3 (06:10→22:05)
[2018-05-06] MEDS: ELIQUIS PO SCH (08:56)
[2018-05-06] MEDS: PROTONIX PO SCH (08:56)
[2018-05-06] MEDS: ASPIRIN PO SCH (08:57)
[2018-05-06] MEDS: ALDACTONE PO SCH (08:58)
[2018-05-06] MEDS: CORDARONE PO SCH (08:59)
[2018-05-06] MEDS: LASIX PO SCH (08:59)
[2018-05-06] MEDS: COREG PO SCH ×2 (09:00→22:04)
[2018-05-06] MEDS: PRINIVIL PO SCH (09:00)
[2018-05-06] MEDS: DUONEB (A & A) INH PRN ×2 (16:14→20:00)
--- NOTE | 2018-05-06 16:49 | PROGRESS NOTE ---
DATE: 05/06/2018 SUBJECTIVE: The patient is kind of out of it, is not thinking too clearly, but no major complaints. OBJECTIVE: Vital signs: Blood pressure is 92/63, heart rate of 80, respiratory rate of 15, temperature 98.5 degrees. Cardiovascular: Regular rate and rhythm. Pulmonary: Diminished at the bases. GI: Soft, nontender, nondistended. Bowel sounds are positive. LABORATORY DATA: None. ASSESSMENT AND PLAN: Terminal congestive heart failure and respiratory failure. Apparently his home situation, he cannot be taken care of at home. Reportedly medications are all over the floor. He just cannot be managed at home. He is actively dying associated with heart failure. He has had blood pressure 76/50. He does appear to be somewhat agitated. He does appear to be somewhat uncomfortable. At this point, we are going to continue comfort measures. I am waiting for social work and hospice to evaluate for discharge planning. cc: Mike Adler MD
[2018-05-07] MEDS: MORPHINE IV PRN ×8 (02:28→23:31)
[2018-05-07] MEDS: DUONEB (A & A) INH PRN ×2 (07:53→20:00)
[2018-05-07] MEDS: COREG PO SCH ×2 (09:28→22:43)
[2018-05-07] MEDS: CORDARONE PO SCH (09:28)
[2018-05-07] MEDS: ELIQUIS PO SCH (09:28)
[2018-05-07] MEDS: PROTONIX PO SCH (09:29)
[2018-05-07] MEDS: ASPIRIN PO SCH (09:30)
[2018-05-07] MEDS: PRINIVIL PO SCH (14:07)
[2018-05-07] MEDS: LASIX PO SCH (14:07)
[2018-05-07] MEDS: ALDACTONE PO SCH (14:08)
--- NOTE | 2018-05-07 15:48 | PROGRESS NOTE ---
DATE: 05/07/2018 SUBJECTIVE: The patient states he cannot breathe. He is having some chest discomfort. OBJECTIVE: Blood pressure is 114/79, heart rate 99, respiratory rate 22, temperature 98.1.Cardiovascular: Regular rate and rhythm. Pulmonary: Bilateral breath sounds. Clear to auscultation. Gastrointestinal: Soft, nontender, nondistended. Bowel sounds are positive. LABORATORY: No laboratory data. PROBLEM LIST: 1. Congestive heart failure and chronic respiratory failure. We are continuing comfort measures. Blood pressure is a bit on the low side, but we are going to continue his regular medications and follow. 2. Social situation is difficult. Apparently, there was illegal drug use, I was a little bit confused as to his outpatient setting, but he is not safe to go home and hospice is not involved in his care. Currently, we are looking at options. He may need long-term care with hospice. We will try to get a social work evaluation, decide about we can do next for him. But he does not want anything aggressive at this point, so we will follow. cc: Mike Adler MD
[2018-05-08] MEDS: MORPHINE IV PRN ×8 (01:37→22:59)
[2018-05-08] MEDS: DUONEB (A & A) INH PRN ×2 (04:55→06:52)
[2018-05-08] MEDS: ASPIRIN PO SCH (09:14)
[2018-05-08] MEDS: ALDACTONE PO SCH (09:14)
[2018-05-08] MEDS: ELIQUIS PO SCH (09:15)
[2018-05-08] MEDS: PROTONIX PO SCH (09:16)
[2018-05-08] MEDS: CORDARONE PO SCH (09:19)
[2018-05-08] MEDS: LASIX PO SCH (12:45)
[2018-05-08] MEDS: COREG PO SCH ×2 (12:48→20:11)
--- NOTE | 2018-05-08 15:49 | PROGRESS NOTE ---
DATE: 05/08/2018 SUBJECTIVE: He seems a little bit more awake, alert today. No major other complaints. OBJECTIVE: Vital signs: Blood pressure 97/71, heart rate of 95, respiratory rate 20, temperature 97.3 degrees, 100% on 3 L. Cardiovascular: Regular rate and rhythm. Pulmonary: Bilateral breath sounds. Clear to auscultation. GI: Soft, nontender, nondistended. Bowel sounds are positive. LABORATORY DATA: I have nothing except one blood sugar. PROBLEM LIST: Congestive heart failure which is felt to be terminal with acute on chronic respiratory failure. The patient wants to pursue hospice. We are working on placement options versus GIP for him. He still seems to be short of breath and just seems tired, but we will continue to follow. DISPOSITION: Pending his clinical status. Well, really depending on his social status at this point. cc: Mike Adler MD
[2018-05-09] MEDS: MORPHINE IV PRN ×5 (03:22→20:17)
[2018-05-09] MEDS: DUONEB (A & A) INH PRN ×2 (07:30→16:10)
[2018-05-09] MEDS: ELIQUIS PO SCH (09:17)
[2018-05-09] MEDS: PROTONIX PO SCH (09:17)
[2018-05-09] MEDS: CORDARONE PO SCH (09:17)
[2018-05-09] MEDS: COREG PO SCH ×2 (09:17→20:16)
[2018-05-09] MEDS: ASPIRIN PO SCH (09:19)
--- NOTE | 2018-05-09 13:55 | PROGRESS NOTE ---
DATE: 05/09/2018 SUBJECTIVE: The patient resting in bed, has family present in the room. He is asking to be discharged today. OBJECTIVE: His vital signs as follows: Temperature 97.6 degrees, pulse 94, respiratory rate 15, blood pressure is 96/60, oxygen saturation is 97%.HEENT: Atraumatic, normocephalic. Cardiovascular: S1, S2. Respiratory: Has evidence of good entry bilaterally. Abdomen: Soft, nontender. No masses felt. Central nervous system: No obvious focal deficits. LABORATORY DATA: None today. ASSESSMENT AND PLAN: 1. Congestive heart failure exacerbation. 2. Acute on chronic respiratory failure. 3. Chronic obstructive pulmonary disease exacerbation. 4. Atrial fibrillation. PLAN: 1. Patient receiving comfort care measures and will be discharged home with hospice. 2. He will probably be discharged tomorrow and will be going to [place] with his family. cc: Javier Jiménez MD MTDD
[2018-05-09] MEDS: LASIX PO SCH (15:02)
[2018-05-09] MEDS: ALDACTONE PO SCH (15:02)
[2018-05-10] MEDS: MORPHINE IV PRN ×3 (00:14→06:36)
[2018-05-10] MEDS ORDERED: MORPHINE IV PRN (09:58)
[2018-05-10] MEDS: PROTONIX PO SCH (10:20)
[2018-05-10] MEDS: COREG PO SCH (10:20)
[2018-05-10] MEDS: LASIX PO SCH (10:20)
[2018-05-10] MEDS: ALDACTONE PO SCH (10:20)
[2018-05-10] MEDS: CORDARONE PO SCH (10:20)
[2018-05-10] MEDS: ELIQUIS PO SCH (10:21)
[2018-05-10] MEDS: ASPIRIN PO SCH (10:22)
[2018-05-10] MEDS ORDERED: ATIVAN PO ONE (10:39)
[2018-05-10] MEDS ORDERED: MORPHINE IR PO ONE (10:40)
[2018-05-10 11:26] VITALS: BP 97/67
--- NOTE | 2018-05-11 00:43 | DISCHARGE SUMMARY ---
ADMISSION DATE: 05/06/2018 DISCHARGE DATE: 05/10/2018 FINAL DISCHARGE DIAGNOSES: 1. Acute on chronic systolic congestive heart failure exacerbation. 2. Severe peripheral arterial disease with critical stenosis of the abdominal aorta. 3. Paroxysmal atrial fibrillation. 4. Chronic pain. 5. Coronary artery disease. HOSPITAL COURSE: Mr. Figueredo is a 53-year-old male with an extensive cardiac history, who presented to the ER with shortness of breath. The patient was initially discharged home with hospice, but it was not set up so the patient presented to the ER. The patient was admitted to the hospitalist service and comfort measures were initiated. Palliative care was consulted as well as [facility] to assist with the hospice setup. Arrangements were made after discussion with the patient's family to have the patient sent home with relatives in [place]. Arrangements were made with the assistance of Palliative Care and [facility]. The patient is currently ready for discharge today to go home with hospice. cc: Michelle Velasquez MD
== END 2018-05-10 12:19 | disposition hospice, home (50) | DRG 291 ==
LOC: ED 02:40 → SUATTDRO 04:53 → 3N 04:53
PROVIDERS: ATTEND Internal Medicine
CPT/HCPCS: 82948; 94640; 94761; 96374; 96375; 99284; A9270; J1940; J2060; J2270; J2405; XXXXX